=== PATIENT | male | born 1955 | race Caucasian/White ===

== ENCOUNTER 2016-11-01 23:02 | Emergency (ER) | payer OTHER ==
[2016-11-01 23:33] VITALS: BP 157/77; PULSE 69; TEMP 98.3; BMI 25.1
--- NOTE | 2016-11-02 01:07 | PDOC ---
History of Present Illness - History of Present Illness Initial Comments: 11/02/16 01:44 The patient is a 61 year old male, poor historian, with a significant past medical history of diabetes and hypertension, who presents to the emergency department from [facility] via ems with ecchymosis on left buttock for 2 weeks. The patient states he does not know how he obtained the bruise. He reports the bruise is painful. He denies chest pain, shortness of breath, headache and dizziness. He denies fever, chills, nausea, vomit, diarrhea and constipation. He denies dysuria, frequency, urgency and hematuria. Allergies: lactase <Marissa Hardy - Last Filed: 11/02/16 01:43> <Ju Godinez - Last Filed: 11/02/16 02:33> - General Chief Complaint: Wound Stated Complaint: ABSESS Time Seen by Provider: 11/01/16 23:49 Past History <Marissa Hardy - Last Filed: 11/02/16 01:43> - Past Medical History Anemia: No Asthma: No Cancer: No Cardiac Disorders: No CVA: No COPD: No CHF: No Dementia: No Diabetes: Yes GI Disorders: No Disorders: No HTN: Yes Hypercholesterolemia: Yes Liver Disease: No Seizures: No Thyroid Disease: No - Psycho/Social/Smoking Cessation Hx Anxiety: No Suicidal Ideation: No Smoking Status: No Smoking History: Current every day smoker Have you smoked in the past 12 months: Yes Number of Cigarettes Smoked Daily: 10 Information on smoking cessation initiated: Yes Hx Alcohol Use: No Drug/Substance Use Hx: No Substance Use Type: None <Ju Godinez - Last Filed: 11/02/16 02:33> - Past Medical History Allergies/Adverse Reactions: Allergies Allergy/AdvReac Type Severity Reaction Status Date / Time Lactase [From Dairy Ease] Allergy Mild Verified 11/01/16 23:31 Home Medications: Ambulatory Orders Amlodipine Besylate [Norvasc -] 10 mg PO DAILY #0 tablet 09/27/11 Lisinopril [Prinivil] 40 mg PO DAILY #0 tablet 09/27/11 Metformin HCl [Glucophage] 1,000 mg PO BIDAC #0 tablet 09/27/11 Review of Systems - Review of Systems Able to Perform ROS?: Yes Comments:: 11/02/16 01:44 CONSTITUTIONAL: Absent: fever, chills, diaphoresis, generalized weakness, malaise, loss of appetite HEENT: Absent: rhinorrhea, nasal congestion, throat pain, throat swelling, difficulty swallowing, mouth swelling, ear pain, eye pain, visual Changes CARDIOVASCULAR: Absent: chest pain, syncope, palpitations, irregular heart rate, lightheadedness , peripheral edema RESPIRATORY: Absent: cough, shortness of breath, dyspnea with exertion, orthopnea, wheezing, stridor, hemoptysis GASTROINTESTINAL: Absent: abdominal pain, abdominal distension, nausea, vomiting, diarrhea, constipation, melena, hematochezia GENITOURINARY: Absent: dysuria, frequency, urgency, hesitancy, hematuria, flank pain, genital pain MUSCULOSKELETAL: Absent: myalgia, arthralgia, joint swelling SKIN: (+)ecchymosis on left buttock Absent: rash, itching, pallor HEMATOLOGIC/IMMUNOLOGIC: Absent: easy bleeding, lymphadenopathy, frequent infections ENDOCRINE: Absent: unexplained weight gain, unexplained weight loss, heat intolerance, cold intolerance NEUROLOGIC: Absent: headache, focal weakness or paresthesias, dizziness, unsteady gait, seizure, mental status changes, bladder or bowel incontinence PSYCHIATRIC: Absent: anxiety, depression, suicidal or homicidal ideation, hallucinations. <Marissa Hardy - Last Filed: 11/02/16 01:43> *Physical Exam - Vital Signs Last Vital Signs Temp Pulse Resp BP Pulse Ox 98.3 F 69 18 157/77 99 11/01/16 23:31 11/01/16 23:31 11/01/16 23:31 11/01/16 23:31 11/01/16 23:31 - Physical Exam Comments: 11/02/16 01:45 GENERAL: Well developed, well nourished. Awake and alert. No acute distress. HEENT: Normocephalic, atraumatic. PERRLA, EOMI. No conjunctival pallor. Sclera are non- icteric. Moist mucous membranes. Oropharynx is clear. NECK: Supple. Full ROM. No JVD. Carotid pulses 2+ and symmetric, without bruits. No thyromegaly. No lymphadenopathy. CARDIOVASCULAR: Regular rate and rhythm. No murmurs, rubs, or gallops. Distal pulses are 2+ and symmetric. PULMONARY: No evidence of respiratory distress. Lungs clear to auscultation bilaterally. No wheezing, rales or rhonchi. ABDOMINAL: Soft. Non-tender. Non-distended. No rebound or guarding. No organomegaly. Normoactive bowel sounds. MUSCULOSKELETAL Normal range of motion at all joints. No bony deformities or tenderness. No CVA tenderness. EXTREMITIES: No cyanosis. No clubbing. No edema. No calf tenderness. SKIN: (+) large hematoma over left buttock. Warm and dry. Normal capillary refill. No rashes. No jaundice. NEUROLOGICAL: Alert, awake, appropriate. Cranial nerves 2-12 intact. Normoreflexic in the upper and lower extremities. Toes are down-going bilaterally. Gait is normal without ataxia. PSYCHIATRIC: Cooperative. Good eye contact. Appropriate mood and affect. <Marissa Hardy - Last Filed: 11/02/16 01:43> - Vital Signs Last Vital Signs Temp Pulse Resp BP Pulse Ox 98.3 F 69 18 157/77 99 11/01/16 23:31 11/01/16 23:31 11/01/16 23:31 11/01/16 23:31 11/01/16 23:31 <Ju Godinez - Last Filed: 11/02/16 02:33> ED Treatment Course - LABORATORY CBC & Chemistry Diagram: 11/02/16 01:17 11/02/16 01:17 - ADDITIONAL ORDERS Additional order review: 11/02/16 01:17 RBC 4.43 MCV 85.1 MCHC 33.6 RDW 14.2 MPV 7.3 L Neutrophils % 70.5 Lymphocytes % 14.9 Monocytes % 9.7 Eosinophils % 3.9 D Basophils % 1.0 <Marissa Hardy - Last Filed: 11/02/16 01:43> - LABORATORY CBC & Chemistry Diagram: 11/02/16 01:17 11/02/16 01:17 <Ju Godinez - Last Filed: 11/02/16 02:33> Medical Decision Making - Medical Decision Making 11/02/16 01:55 61 yo male p/w ecchymosis to the entire left buttocks. He states hse has had thsi for 2 weeks and th enote that accompanies him from [facility] He denies any trauma. social- lives at [place] PMH HTN,DM -pt is ambulatory ,alert but does not appear to have great insight into his problem and is a poor historian -lungs cta b/l -his abd is soft nontender back- no ecchymosis ,there is a linear line of discoloration but is it not a bruise, no abrasions,no lacerations are seen onhis back extremities-no erythema,no deformity or bruising neuro -alert,ambulatory,moving all extremities purposefully LAB REVIEW cbc is normal , no anemia [id number] 11/02/16 02:28 IMP left buttocks ecchymosis <Ju Godinez - Last Filed: 11/02/16 02:33> *DC/Admit/Observation/Transfer - Attestations Scribe Attestion: 11/02/16 01:46 Documentation prepared by Marissa Hardy, acting as claim review medical director for Ju Godinez MD <Marissa Hardy - Last Filed: 11/02/16 01:43> <Ju Godinez - Last Filed: 11/02/16 02:33> Diagnosis at time of Disposition: Bruising, Pain in buttock - Discharge Dispostion Disposition: HOME Condition at time of disposition: Stable - Patient Instructions Printed Discharge Instructions: DI for Hematoma (Bruise) Additional Instructions: Please take tylenol or motrin for buttocks pain
[2016-11-02 01:28] LABS: EOSINOPHIL 3.9 % (0-4.5); MCH 28.5 pg (25.7-33.7); MCHC 33.6 g/dl (32.0-35.9); MEAN CELL VOLUME 85.1 fl (80-96); MEAN PLT VOLUME 7.3 fl (7.5-11.1); NEUTROPHILS 70.5 % (42.8-82.8); PLATELET COUNT 308 K/MM3 (134-434); RDW 14.2 % (11.9-15.9); WHITE BLOOD COUNT 8.7 K/mm3 (4.0-10.0)
[2016-11-02 02:00] LABS: ALBUMIN 3.6 g/dl (3.4-5.0); ALK PHOS 105 U/L (45-117); ANION GAP 10 (8-16); BILIRUBIN,TOTAL 0.8 mg/dL (0.2-1.0); CALCIUM 8.3 mg/dL (8.5-10.1); CO2 29 mmol/L (21-32); GLUCOSE,RANDOM 175 mg/dL (74-106); SGOT/AST 15 U/L (15-37); SGPT/ALT 11 U/L (12-78); TOT PROT 6.6 g/dl (6.4-8.2)
== END 2016-11-02 03:01 | disposition home or self-care (01) ==
LOC: JER 23:02
DX: R58 Hemorrhage, not elsewhere classified (principal); I10 Essential (primary) hypertension; E11.9 Type 2 diabetes mellitus without complications; Z79.84 Long term (current) use of oral hypoglycemic drugs
CPT/HCPCS: 36415; 80053; 85025; 99282-25

== ENCOUNTER 2019-07-02 00:42 | Emergency (ER) | payer OTHER ==
[2019-07-02 01:16] VITALS: BP 146/82; PULSE 89; TEMP 98.8; BMI 25.1
[2019-07-02] MEDS ORDERED: SODIUM CHLORIDE FOR INHALATION 3 ML VIAL.NEB IH ONE (01:21)
[2019-07-02] MEDS ORDERED: IBUPROFEN 600 MG TABLET (FP) PO ONE ×2 (01:21→01:48)
--- NOTE | 2019-07-02 01:26 | PDOC ---
History of Present Illness - General Chief Complaint: Sore Throat Stated Complaint: THROAT PAIN Time Seen by Provider: 07/02/19 01:12 History Source: Patient Exam Limitations: No Limitations - History of Present Illness Initial Comments: 07/02/19 01:21 HISTORY OF PRESENT ILLNESS: This 64-year-old male past medical history of NIDDM , hypertension, glaucoma, hyperlipidemia and mood disorder who was sent to the emergency department for evaluation of throat pain. Patient reports to be checking his temperature at [facility] where he resides but has been afebrile. He reports having tactile fevers. Patient reports he has difficulty swallowing food due to pain in his throat but is able to drink liquids without difficulty. He denies any chest pain, shortness of breath, headaches, blurry vision. Patient with intermittent coughing which is been nonproductive. No recent travel or sick contacts. PAST MEDICAL HISTORY: See HPI SURGICAL HISTORY: Denies ALLERGIES: No known drug allergies REVIEW OF SYSTEMS General/Constitutional: Denies fever or chills. Denies weakness, weight change. HEENT: See HPI Cardiovascular: Denies chest pain or shortness of breath. Respiratory: See HPI Gastrointestinal: Denies nausea, vomiting, diarrhea or constipation. Denies rectal bleeding. Genitourinary: Denies dysuria, frequency, or change in urination. Musculoskeletal: Denies joint or muscle swelling or pain. Denies neck or back pain. Skin and breasts: Denies rash or easy bruising. Neurologic: Denies headache, vertigo, loss of consciousness, or loss of sensation. Psychiatric: Denies depression or anxiety. Endocrine: Denies increased thirst. Denies abnormal weight change. Hematologic/Lymphatic: Denies anemia, easy bleeding, or history of blood clots. Allergic/Immunologic: Denies hives or skin allergy. Denies latex allergy. PHYSICAL EXAM General Appearance: Well-appearing, appropriately dressed. No apparent distress , no intoxication. HEENT: EOMI, PERRLA, normal ENT inspection, normal voice, TMs jeyson oropharynx mildly erythematous without tonsillar swelling, l. No conjunctival pallor. No photophobia, scleral icterus. Erythema or exudate present. Cobblestoning present in the posterior aspect of the oropharynx. Mucus present in the posterior aspect of the oropharynx. Neck: Supple. Trachea midline. No tenderness, rigidity, carotid bruit, stridor , lymphadenopathy, or thyromegaly. Respiratory/Chest: Lungs CTAB. No shortness of breath, chest tenderness, respiratory distress, accessory muscle use. No crackles, rales, rhonchi, stridor , wheezing, dullness Cardiovascular: RRR. S1, S2. No JVD, murmur, bradycardia, tachycardia. Vascular Pulses: Dorsalis-Pedis (R): 2+, Dorsalis-Pedis (L): 2+ Gastrointestinal/Abdominal: Normal bowel sounds. Abdomen soft, non-distended. No tenderness or rebound tenderness. No organomegaly, pulsatile mass, guarding, hernia, hepatomegaly, splenomegaly. Lymphatic: No adenopathy, tenderness. Past History - Past Medical History Allergies/Adverse Reactions: Allergies Allergy/AdvReac Type Severity Reaction Status Date / Time Lactase [From Dairy Ease] Allergy Mild Verified 07/02/19 01:16 Home Medications: Ambulatory Orders Amlodipine Besylate [Norvasc -] 10 mg PO DAILY #0 tablet 09/27/11 Lisinopril [Prinivil] 40 mg PO DAILY #0 tablet 09/27/11 Metformin HCl [Glucophage] 1,000 mg PO BIDAC #0 tablet 09/27/11 Anemia: No Asthma: No Cancer: No Cardiac Disorders: No CVA: No COPD: No CHF: No Dementia: No Diabetes: Yes GI Disorders: No Disorders: No HTN: Yes Hypercholesterolemia: Yes Liver Disease: No Seizures: No Thyroid Disease: No - Psycho Social/Smoking Cessation Hx Smoking Status: No Smoking History: Current every day smoker Have you smoked in the past 12 months: Yes Number of Cigarettes Smoked Daily: 10 Information on smoking cessation initiated: No Hx Alcohol Use: No Drug/Substance Use Hx: No Substance Use Type: None *Physical Exam - Vital Signs Last Vital Signs Temp Pulse Resp BP Pulse Ox 98.8 F 89 18 146/82 98 07/02/19 00:45 07/02/19 00:45 07/02/19 00:45 07/02/19 00:45 07/02/19 00:45 Medical Decision Making - Medical Decision Making 07/02/19 01:25 A/P: 64-year-old male with sore throat and moist cough for 2 days This patient is afebrile and currently has clear lungs this is likely not a streptococcal infection nor pneumonia. Physical exam is consistent with a upper respiratory viral infection. Motrin 600 mg orally now Saline nebulizer treatments Reassess 07/02/19 01:42 Although patient reports difficulty swallowing patient is tolerating a turkey sandwich without difficulty. We will discharge patient back to [facility] to continue supportive care at the residence. I spoke with Ms. Aura Carmichael [facility] who is a patient care general road supervisor who is aware that the patient is returning to the facility and asked that the instructions be included in his discharge paperwork. Discharge - Discharge Information Problems reviewed: Yes Clinical Impression/Diagnosis: URI (upper respiratory infection) Qualifiers: URI type: unspecified viral URI Qualified Code(s): J06.9 - Acute upper respiratory infection, unspecified Condition: Fair Disposition: HOME - Admission No - Follow up/Referral - Patient Discharge Instructions Additional Instructions: Rest, drink lots of fluids: Teas, water, soups, Pedialyte Saltwater gargles Steamy showers/seem to face break up mucus Avoid contact with others until fevers and cough resolved Lots of handwashing and good hygiene Continue [id number] medications for symptomatic relief Tylenol or Motrin for fever and pain Followup with private physician in one to 2 days as needed Return to emergency department for worsened symptoms, fevers, dehydration - Post Discharge Activity
== END 2019-07-02 02:56 | disposition home or self-care (01) ==
LOC: JER 00:42
PROC: 3E0F7GC Introduction of Other Therapeutic Substance into Respiratory Tract, Via Natural or Artificial Opening (ICD-10-PCS; principal; 2019-07-02)
DX: J06.9 Acute upper respiratory infection, unspecified (principal); I10 Essential (primary) hypertension; E11.9 Type 2 diabetes mellitus without complications; Z79.84 Long term (current) use of oral hypoglycemic drugs; E78.00 Pure hypercholesterolemia, unspecified; F39 Unspecified mood [affective] disorder; H40.9 Unspecified glaucoma; Z91.02 Food additives allergy status; F17.210 Nicotine dependence, cigarettes, uncomplicated
CPT/HCPCS: 94640; 99281-25

== ENCOUNTER 2020-05-22 10:10 | Emergency (ER) | payer OTHER ==
[2020-05-22 10:23] VITALS: BMI 25.8
--- NOTE | 2020-05-22 11:00 | PDOC ---
History of Present Illness - General Chief Complaint: Injury Stated Complaint: hand laceration/fall/high blood sugar Time Seen by Provider: 05/22/20 11:00 - History of Present Illness Initial Comments: 05/22/20 11:09 64 yo male with pmh of DM presents to ED for right hand laceration that started this morning. Pt explains he was walking out of the grocery store and tripped on a rock and fell on his right hand. Since then he is been having profuse bleeding from right hand. Pt denies loc, hitting head, and was able to get up right away after fall on his own. Pt denies chest pain, sob, fevers, chills, abdominal pain, change in urination or bowel movements. Pt has no other pain besides right hand and denies numbness anywhere. Pt has had tetanus shot three months ago. PMH: NIDDM Allergy: Lactose PSH: denies Social: Lives at [facility] PCP: Dr. Cleaning Past History - Medical History Allergies/Adverse Reactions: Allergies Allergy/AdvReac Type Severity Reaction Status Date / Time Lactase [From Dairy Ease] Allergy Mild Verified 07/02/19 01:16 Home Medications: Ambulatory Orders Amlodipine Besylate [Norvasc -] 10 mg PO DAILY #0 tablet 09/27/11 Lisinopril [Prinivil] 40 mg PO DAILY #0 tablet 09/27/11 Metformin HCl [Glucophage] 1,000 mg PO BIDAC #0 tablet 09/27/11 Sulfamethoxazole/Trimethoprim [Bactrim Ds -] 1 tab PO BID 7 Days #14 tablet 05/22/20 Anemia: No Asthma: No Cancer: No Cardiac Disorders: No CVA: No COPD: No CHF: No Dementia: No Diabetes: Yes GI Disorders: No Disorders: No HTN: Yes Hypercholesterolemia: Yes Liver Disease: No Psychiatric Problems: Yes (psychosis) Seizures: No Thyroid Disease: Yes - Psycho-Social/Smoking History Smoking Status: No Smoking History: Unknown if ever smoked Have you smoked in the past 12 months: No Number of Cigarettes Smoked Daily: 10 Information on smoking cessation initiated: No - Substance Abuse Hx (Audit-C & DAST Scrn) In the last yr the pt used illegal drug/Rx for NonMed reason: No Score: Yes response is considered Positive: 0 Screen Result (Positive result requires Nsg. DAST-10): Negative Review of Systems - Review of Systems Comments:: 05/22/20 11:12 GENERAL/CONSTITUTIONAL: No fever or chills. No weakness. HEAD, EYES, EARS, NOSE AND THROAT: No change in vision. No ear pain or discharge. No sore throat. CARDIOVASCULAR: No chest pain or shortness of breath RESPIRATORY: No cough, wheezing, or hemoptysis. GASTROINTESTINAL: No nausea, vomiting, diarrhea or constipation. GENITOURINARY: No dysuria, frequency, or change in urination. MUSCULOSKELETAL: Right thumb pain SKIN: No rash NEUROLOGIC: No headache, vertigo, loss of consciousness, or change in strength/sensation. ENDOCRINE: No increased thirst. No abnormal weight change ALLERGIC/IMMUNOLOGIC: No hives or skin allergy. *Physical Exam - Vital Signs Last Vital Signs Temp Pulse Resp BP Pulse Ox 97.6 F 80 16 130/75 100 05/22/20 10:17 05/22/20 10:17 05/22/20 10:17 05/22/20 10:17 05/22/20 10:17 - Physical Exam 05/22/20 11:14 GENERAL: Awake, alert, and fully oriented, in no acute distress HEAD: No signs of trauma, normocephalic, atraumatic EYES: EOMI, sclera anicteric, conjunctiva clear ENT: Auricles normal inspection, hearing grossly normal, nares patent, oropharynx clear without exudates. Moist mucosa NECK: Normal ROM, supple, no lymphadenopathy, JVD, or masses LUNGS: No distress, speaks full sentences, clear to auscultation bilaterally HEART: Regular rate and rhythm, normal S1 and S2, no murmurs, rubs or gallops, peripheral pulses normal and equal bilaterally. ABDOMEN: Soft, nontender, normoactive bowel sounds. No guarding, no rebound. No masses EXTREMITIES : Right dorsal aspect laceration with 4 cm and pulsatile bleeding NEUROLOGICAL: Cranial nerves II through XII grossly intact. Normal speech, normal gait, no focal sensorimotor deficits SKIN: Warm, Dry, normal turgor, no rashes or lesions noted ED Treatment Course - LABORATORY CBC & Chemistry Diagram: 05/22/20 10:30 05/22/20 10:30 Medical Decision Making - Medical Decision Making 05/22/20 11:18 64 yo male with history of dm presents for mechanical fall and right hand laceration. Pt believes he fell on [place]. Pt had pulsatile blood flow coming from laceration. Will get cxr to look for glass. Multiple times sutured to tamponade bleed with 3-0 absorbable sutures. Xray showed no glass or infiltrates hand. Hand was anesthesized with 1% lidocaine, washed profusely under sink, and sutured with 4 nonabsorbable 4-0 sutures. Pt was told about return precautions and to take antibiotics and to follow up with PCP within 7 days. Pt did understand. Pt then was told about elevated Creatinine and was also told to follow up with PCP. Discharge - Discharge Information Problems reviewed: Yes Clinical Impression/Diagnosis: Finger laceration Qualifiers: Encounter type: initial encounter Finger: thumb Damage to nail status: without damage Foreign body presence: without foreign body Laterality: right Qualified Code(s): S61.011A - Laceration without foreign body of right thumb without damage to nail, initial encounter Condition: Good Disposition: HOME - Additional Discharge Information Prescriptions: Sulfamethoxazole/Trimethoprim [Bactrim Ds -] 1 tab PO BID 7 Days #14 tablet - Follow up/Referral Referrals: Edy Cleaning [Primary Care Provider] - - Patient Discharge Instructions Patient Printed Discharge Instructions: DI for Laceration Repair -- Finger Additional Instructions: You came to the ED for a laceration. At the ED we gave you multiple absorbable sutures and 4 nonabsorbable sutures. After the sutures you still were neurovascularly intact. Please try not to move your thumb for the next 7 days. You will have mild bleeding from the laceration but it should not drench through gauze. Please follow up with your pcp for the finger laceration in 7 days to take out the stitches. Please also take the bactrim for two times a day for the next seven days. You also have elevated kidney levels please follow up with your PCP for that as well. Please come back if any of the following: - worsening pain - yellow or thick discharge from the laceration - fevers or chills - expanding erythema from area IF you have any emergent symptoms please call for medical help right away. Print Language: WOLOF - Post Discharge Activity
--- NOTE | 2020-05-22 11:33 | PDOC ---
Documentation entered by Krystal Crook SCRIBE, acting as scribe for Meet De Guzman MD. Meet De Guzman MD: This documentation has been prepared by the Armaan lópez Xhesika, SCRIBE, under my direction and personally reviewed by me in its entirety. I confirm that the documentation accurately reflects all work, treatment, procedures, and medical decision making performed by me. Attending Attestation - Resident Resident Name: Wilmer Adkins - ED Attending Attestation I have performed the following: I have examined & evaluated the patient, The case was reviewed & discussed with the resident, I agree w/resident's findings & plan, Exceptions are as noted - HPI HPI: 05/22/20 11:08 The patient is a 64 year old male, with a significant past medical history of diabetes and hypertension, who presents to the emergency department with R hand laceration. Pt states he was walking out the grocery store, tripped on rocks and fell on glass. Pt denies hitting his head or LOC. Pt denies any UE numbness. He denies chest pain, shortness of breath, headache and dizziness. He denies fever, chills, nausea, vomit, diarrhea and constipation. He denies dysuria, frequency, urgency and hematuria. Allergies: lactase - Physicial Exam PE: 05/22/20 11:30 exam: GENERAL: The patient is awake, alert, and fully oriented, Nontoxic - in no acute distress. HEAD: Normocephalic, atraumatic. EXTREMITIES: Normal range of motion, no edema. superficial 2cm laceration on the radial aspect of R wrist with bleeding (likely artriole), n/v intact including thumb flexion/extension, sensation NEUROLOGICAL: No facial assymetry, Normal speech, moving all 4 extremities spontaneously and symmetrically - Medical Decision Making 05/22/20 11:32 hyperglyceia - will obtain lab work to ro dka fluids for hydration laceration sp falll onto glass on the street. no head njury/loc likely with arteriolar bleeding, attempted to use stituch to tamponade mery obtain xray to r/o fb tetanus lac closure 05/22/20 13:39 lac closed by resident by good approximation under my supervision no fb on xray lab reviewed, noted for hyperglycemia w/o dka will dc with outpt fu return preucations were discussed Discharge - Discharge Information Problems reviewed: Yes Clinical Impression/Diagnosis: Finger laceration Qualifiers: Encounter type: initial encounter Finger: thumb Damage to nail status: without damage Foreign body presence: without foreign body Laterality: right Qualified Code(s): S61.011A - Laceration without foreign body of right thumb without damage to nail, initial encounter Condition: Good Disposition: HOME - Admission No - Additional Discharge Information Prescriptions: Sulfamethoxazole/Trimethoprim [Bactrim Ds -] 1 tab PO BID 7 Days #14 tablet - Follow up/Referral Referrals: Edy Cleaning [Primary Care Provider] - - Patient Discharge Instructions Patient Printed Discharge Instructions: DI for Laceration Repair -- Finger Additional Instructions: You came to the ED for a laceration. At the ED we gave you multiple absorbable sutures and 4 nonabsorbable sutures. After the sutures you still were neurovascularly intact. Please try not to move your thumb for the next 7 days. You will have mild bleeding from the laceration but it should not drench through gauze. Please follow up with your pcp for the finger laceration in 7 days to take out the stitches. Please also take the bactrim for two times a day for the next seven days. You also have elevated kidney levels please follow up with your PCP for that as well. Please come back if any of the following: - worsening pain - yellow or thick discharge from the laceration - fevers or chills - expanding erythema from area IF you have any emergent symptoms please call for medical help right away. Print Language: AMHARIC - Post Discharge Activity
[2020-05-22 12:17] LABS: BASO % 1.1 % (0-2.0); EOS % 7.6 % (0-4.5); HEMOGLOBIN 14.3 GM/dL (11.7-16.9); LYMPH % 15.8 % (8-40); MCH 29.5 pg (25.7-33.7); MEAN CELL VOLUME 86.9 fl (80-96); MEAN PLT VOLUME 8.2 fl (7.5-11.1); MONO % 6.9 % (3.8-10.2); NEUT % 68.6 % (42.8-82.8); PLATELET COUNT 309 K/MM3 (134-434); RBC 4.83 M/mm3 (4.00-5.60); RDW 13.6 % (11.9-15.9); WHITE BLOOD COUNT 7.7 K/mm3 (4.0-10.0)
[2020-05-22 12:44] LABS: ALBUMIN 3.8 g/dl (3.4-5.0); BILIRUBIN,TOTAL 0.2 mg/dL (0.2-1); BLOOD UREA NITROGEN 23.4 mg/dL (7-18); CALCIUM 8.8 mg/dL (8.5-10.1); CREATININE 1.4 mg/dL (0.55-1.3); POTASSIUM 4.9 mmol/L (3.5-5.1); TOT PROT 7.4 g/dl (6.4-8.2)
[2020-05-22 14:07] VITALS: BP 128/76; PULSE 70; TEMP 98.5
== END 2020-05-22 14:07 | disposition home or self-care (01) ==
LOC: JER 10:10
PROC: 0HQFXZZ Repair Right Hand Skin, External Approach (ICD-10-PCS; principal; 2020-05-22)
DX: S61.011A Laceration without foreign body of right thumb without damage to nail, initial encounter (principal)
CPT/HCPCS: 36415; 73130-TC-RT-FY; 80053; 82010; 82962; 85025; 99284-25

== ENCOUNTER 2020-09-24 11:51 | Emergency (ER) | payer OTHER ==
[2020-09-24 12:20] VITALS: TEMP 98.6; BMI 25.1
[2020-09-24 18:12] VITALS: BP 154/79; PULSE 90
== END 2020-09-24 20:45 | disposition home or self-care (01) ==
LOC: JER 11:51
DX: N63.0 Unspecified lump in unspecified breast (principal)
CPT/HCPCS: 71046-TC-FY; 76642-TC-RT; 99284-25

== ENCOUNTER 2021-01-19 20:30 | Inpatient (IN) | payer OTHER ==
[2021-01-19] MEDS ORDERED: SODIUM CHLORIDE 0.9% 500 ML INFUS.BAG IV ONE (21:19)
[2021-01-19 21:26] LABS: VENOUS O2 SATURATION 28.1 % (70-80); VENOUS PCO2 45.8 mmHg (38-52); VENOUS PH 7.336 (7.310-7.410)
[2021-01-19 21:28] LABS: BASO % 0.8 % (0-2.0); EOS % 0.7 % (0-4.5); HEMATOCRIT 32.4 % (35.4-49); HEMOGLOBIN 10.6 GM/dL (11.7-16.9); MCH 28.2 pg (25.7-33.7); MCHC 32.8 g/dl (32.0-35.9); MEAN CELL VOLUME 86.1 fl (80-96); MONO % 4.5 % (3.8-10.2); PLATELET COUNT 690 K/MM3 (134-434); RBC 3.76 M/mm3 (4.00-5.60); RDW 13.6 % (11.9-15.9); WHITE BLOOD COUNT 19.3 K/mm3 (4.0-10.0)
[2021-01-19 21:56] LABS: CHLORIDE 91 mmol/L (98-107); SODIUM 130 mmol/L (136-145)
[2021-01-19 21:58] LABS: CALCIUM 9.4 mg/dL (8.5-10.1)
[2021-01-19 21:59] LABS: ANION GAP 12 MMOL/L (8-16); BLOOD UREA NITROGEN 44.2 mg/dL (7-18); CO2 27 mmol/L (21-32); GLUCOSE,RANDOM 322 mg/dL (74-106); MAGNESIUM 1.6 mg/dL (1.8-2.4)
[2021-01-19 22:02] LABS: SGOT/AST 9 U/L (15-37); SGPT/ALT 11 U/L (13-61)
[2021-01-19 22:03] LABS: BILIRUBIN,TOTAL 0.5 mg/dL (0.2-1); TOT PROT 7.3 g/dl (6.4-8.2)
[2021-01-19 22:04] LABS: ALK PHOS 155 U/L (45-117)
[2021-01-19 22:42] LABS: EPI CELLS 21 /uL (0-25.1); HYALINE CASTS 0 /uL (0-3.1); PH,URINE 5.5 (5.0-8.0); URINE APPEARANCE TURBID; URINE BILIRUBIN NEGATIVE (NEGATIVE); URINE COLOR YELLOW; URINE GLUCOSE (UA) 3+ (NEGATIVE); URINE KETONE TRACE (NEGATIVE); URINE LEUK ESTERASE 3+ (NEGATIVE); URINE NITRITE NEGATIVE (NEGATIVE); URINE PROTEIN 1+ (NEGATIVE); URINE RBC 76 /uL (0-23.9); URINE WBC 3446 /uL (0-25.8)
[2021-01-20] MEDS ORDERED: CEFTRIAXONE 1,000 MG in DEXTROSE 5%-WATER - 50 ML IVPB ONE (00:44)
[2021-01-20] MEDS ORDERED: CEFTRIAXONE 1 GM/50 ML BAG ONE (01:08)
[2021-01-20] MEDS ORDERED: MAGNESIUM SULF 50% (8.12 MEQ/2 ML-1 GM VIAL) IVPB ONE ×2 (01:45→08:19)
[2021-01-20] MEDS ORDERED: OLANZapine 10 MG TABLET ONE (02:19)
[2021-01-20] MEDS ORDERED: MIRTAZAPINE 15 MG TABLET (FP) ONE (02:19)
[2021-01-20] MEDS ORDERED: MAGNESIUM 1GM/D5W - 1 GM/100 ML IVPB IVPB ONE (02:19)
[2021-01-20] MEDS: SODIUM CHLORIDE 1,000 ML IV SCH (02:40)
[2021-01-20] MEDS: MIRTAZAPINE 15 MG TABLET (FP) PO SCH ×2 (02:40→21:47)
[2021-01-20] MEDS: OLANZapine 5 MG TABLET PO SCH ×2 (02:40→21:47)
[2021-01-20 03:59] VITALS: BMI 21.7
[2021-01-20] MEDS ORDERED: DEXTROSE 5%-WATER - 50 ML IVPB ONE ×4 (04:05→20:45)
[2021-01-20] MEDS ORDERED: PIPERACILLIN/TAZOBACTAM 2.25 GM VIAL IVPB ONE ×4 (04:05→20:45)
[2021-01-20] MEDS: PIPERACILLIN/TAZOB 2.25 GM 2.25 GM in DEXTROSE 5%-WATER - 50 ML IVPB SCH ×4 (04:12→21:51)
[2021-01-20] MEDS ORDERED: INSULIN (NOVOLOG) ASPART 100 UNITS/ML 10ML VIAL SQ ONE (04:44)
[2021-01-20 05:16] LABS: PHOSPHOROUS 4.7 mg/dL (2.5-4.9)
[2021-01-20] MEDS: INSULIN SLIDING SCALE (NOVOLOG) 1 VIAL SQ SCH ×4 (06:21→22:03)
[2021-01-20] MEDS: LEVOTHYROXINE NA 25 MCG TABLET (FP) PO SCH (06:24)
[2021-01-20] MEDS: HEPARIN NA (PORCINE) 5,000 UNITS/ML 1ML VIAL SQ SCH ×3 (06:25→21:50)
[2021-01-20 08:41] LABS: HEMATOCRIT 29.3 % (35.4-49); HEMOGLOBIN 9.8 GM/dL (11.7-16.9); MCH 28.6 pg (25.7-33.7); MCHC 33.3 g/dl (32.0-35.9); MEAN CELL VOLUME 85.9 fl (80-96); MEAN PLT VOLUME 8.2 fl (7.5-11.1); PLATELET COUNT 553 K/MM3 (134-434); RBC 3.42 M/mm3 (4.00-5.60); RDW 13.3 % (11.9-15.9); WHITE BLOOD COUNT 17.5 K/mm3 (4.0-10.0)
[2021-01-20 09:13] LABS: ALBUMIN 2.6 g/dl (3.4-5.0); BLOOD UREA NITROGEN 39.3 mg/dL (7-18); CALCIUM 8.8 mg/dL (8.5-10.1)
[2021-01-20 09:14] LABS: MAGNESIUM 1.7 mg/dL (1.8-2.4)
[2021-01-20 09:16] LABS: BILIRUBIN,TOTAL 0.4 mg/dL (0.2-1); CREATININE 1.9 mg/dL (0.55-1.3); PHOSPHOROUS 2.6 mg/dL (2.5-4.9); TOT PROT 6.8 g/dl (6.4-8.2)
[2021-01-20] MEDS: TIMOLOL 0.25% OPHTHALMIC SOL 5 ML BOTTLE OU SCH (09:51)
[2021-01-20] MEDS: amLODIPine BESYLATE 10 MG TABLET (FP) PO SCH (09:51)
[2021-01-20] MEDS ORDERED: TIMOLOL MALEATE AU SCH (10:00)
[2021-01-21] MEDS ORDERED: PIPERACILLIN/TAZOB 2.25 GM 2.25 GM in DEXTROSE 5%-WATER - 50 ML IVPB SCH (03:00)
[2021-01-21] MEDS: SODIUM CHLORIDE 1,000 ML IV SCH (04:41)
[2021-01-21] MEDS: HEPARIN NA (PORCINE) 5,000 UNITS/ML 1ML VIAL SQ SCH ×3 (06:15→21:42)
[2021-01-21] MEDS: LEVOTHYROXINE NA 25 MCG TABLET (FP) PO SCH (06:15)
[2021-01-21] MEDS: INSULIN SLIDING SCALE (NOVOLOG) 1 VIAL SQ SCH ×4 (06:15→21:49)
[2021-01-21 08:23] LABS: HEMATOCRIT 29.1 % (35.4-49); HEMOGLOBIN 9.8 GM/dL (11.7-16.9); MCH 28.8 pg (25.7-33.7); MCHC 33.6 g/dl (32.0-35.9); MEAN CELL VOLUME 85.9 fl (80-96); PLATELET COUNT 540 K/MM3 (134-434); RBC 3.38 M/mm3 (4.00-5.60); RDW 13.5 % (11.9-15.9); WHITE BLOOD COUNT 13.8 K/mm3 (4.0-10.0)
[2021-01-21 08:57] LABS: ALBUMIN 2.4 g/dl (3.4-5.0)
[2021-01-21 08:58] LABS: CALCIUM 8.7 mg/dL (8.5-10.1)
[2021-01-21 08:59] LABS: MAGNESIUM 1.6 mg/dL (1.8-2.4)
[2021-01-21 09:00] LABS: CREATININE 1.3 mg/dL (0.55-1.3); PHOSPHOROUS 2.8 mg/dL (2.5-4.9)
[2021-01-21 09:01] LABS: BILIRUBIN,TOTAL 0.7 mg/dL (0.2-1); TOT PROT 6.4 g/dl (6.4-8.2)
[2021-01-21] MEDS ORDERED: PIPERACILLIN/TAZOBACTAM 3.375 GM VIAL IVPB ONE ×2 (10:14→17:31)
[2021-01-21] MEDS ORDERED: DEXTROSE 5%-WATER - 50 ML IVPB ONE ×2 (10:14→17:31)
[2021-01-21] MEDS: amLODIPine BESYLATE 10 MG TABLET (FP) PO SCH (10:39)
[2021-01-21] MEDS: PIPERACILLIN/TAZOB 3.375 GM 3.375 GM in DEXTROSE 5%-WATER - 50 ML IVPB SCH ×2 (10:39→17:45)
[2021-01-21] MEDS ORDERED: MAGNESIUM OXIDE 400 MG TABLET (FP) PO ONE (12:23)
[2021-01-21] MEDS ORDERED: MAGNESIUM SULF 50% (8.12 MEQ/2 ML-1 GM VIAL) IVPB ONE (14:36)
[2021-01-21] MEDS: TIMOLOL 0.25% OPHTHALMIC SOL 5 ML BOTTLE OU SCH (16:22)
[2021-01-21] MEDS: MIRTAZAPINE 15 MG TABLET (FP) PO SCH (21:41)
[2021-01-21] MEDS: OLANZapine 5 MG TABLET PO SCH (21:42)
[2021-01-22] MEDS ORDERED: PIPERACILLIN/TAZOBACTAM 3.375 GM VIAL IVPB ONE ×3 (01:35→16:22)
[2021-01-22] MEDS ORDERED: DEXTROSE 5%-WATER - 50 ML IVPB ONE ×3 (01:35→16:22)
[2021-01-22] MEDS: PIPERACILLIN/TAZOB 3.375 GM 3.375 GM in DEXTROSE 5%-WATER - 50 ML IVPB SCH ×3 (01:41→17:23)
[2021-01-22] MEDS: INSULIN SLIDING SCALE (NOVOLOG) 1 VIAL SQ SCH ×4 (06:23→21:28)
[2021-01-22] MEDS: HEPARIN NA (PORCINE) 5,000 UNITS/ML 1ML VIAL SQ SCH ×3 (06:27→21:26)
[2021-01-22] MEDS: LEVOTHYROXINE NA 25 MCG TABLET (FP) PO SCH (06:30)
[2021-01-22 08:03] LABS: HEMATOCRIT 29.3 % (35.4-49); HEMOGLOBIN 9.9 GM/dL (11.7-16.9); MCH 29.1 pg (25.7-33.7); MCHC 33.8 g/dl (32.0-35.9); MEAN CELL VOLUME 85.9 fl (80-96); MEAN PLT VOLUME 7.9 fl (7.5-11.1); PLATELET COUNT 538 K/MM3 (134-434); RBC 3.41 M/mm3 (4.00-5.60); RDW 13.6 % (11.9-15.9); WHITE BLOOD COUNT 10.9 K/mm3 (4.0-10.0)
[2021-01-22 08:31] LABS: ALBUMIN 2.6 g/dl (3.4-5.0); BLOOD UREA NITROGEN 23.5 mg/dL (7-18); CALCIUM 9.2 mg/dL (8.5-10.1); MAGNESIUM 1.8 mg/dL (1.8-2.4)
[2021-01-22 08:35] LABS: CREATININE 1.3 mg/dL (0.55-1.3); PHOSPHOROUS 3.6 mg/dL (2.5-4.9)
[2021-01-22 08:36] LABS: BILIRUBIN,TOTAL 0.6 mg/dL (0.2-1); TOT PROT 6.5 g/dl (6.4-8.2)
[2021-01-22] MEDS ORDERED: SODIUM CHLORIDE 1,000 ML IV SCH (08:45)
[2021-01-22] MEDS: amLODIPine BESYLATE 10 MG TABLET (FP) PO SCH (09:38)
[2021-01-22] MEDS: TIMOLOL 0.25% OPHTHALMIC SOL 5 ML BOTTLE OU SCH (09:39)
[2021-01-22] MEDS: SODIUM CHLORIDE 1 GM TABLET PO SCH (17:22)
[2021-01-22] MEDS: MIRTAZAPINE 15 MG TABLET (FP) PO SCH (21:25)
[2021-01-22] MEDS: OLANZapine 5 MG TABLET PO SCH (21:25)
[2021-01-23] MEDS ORDERED: PIPERACILLIN/TAZOBACTAM 3.375 GM VIAL IVPB ONE ×3 (01:53→16:59)
[2021-01-23] MEDS ORDERED: DEXTROSE 5%-WATER - 50 ML IVPB ONE ×3 (01:53→16:59)
[2021-01-23] MEDS: PIPERACILLIN/TAZOB 3.375 GM 3.375 GM in DEXTROSE 5%-WATER - 50 ML IVPB SCH ×3 (01:54→17:11)
[2021-01-23] MEDS: INSULIN SLIDING SCALE (NOVOLOG) 1 VIAL SQ SCH ×5 (06:01→22:14)
[2021-01-23] MEDS: HEPARIN NA (PORCINE) 5,000 UNITS/ML 1ML VIAL SQ SCH ×3 (06:02→22:16)
[2021-01-23] MEDS: LEVOTHYROXINE NA 25 MCG TABLET (FP) PO SCH (06:09)
[2021-01-23 08:34] LABS: BASO % 1.1 % (0-2.0); HEMATOCRIT 31.3 % (35.4-49); HEMOGLOBIN 10.3 GM/dL (11.7-16.9); LYMPH % 10.4 % (8-40); MCH 28.5 pg (25.7-33.7); MCHC 32.8 g/dl (32.0-35.9); MEAN PLT VOLUME 7.7 fl (7.5-11.1); MONO % 6.8 % (3.8-10.2); NEUT % 79.7 % (42.8-82.8); PLATELET COUNT 588 K/MM3 (134-434); RDW 13.6 % (11.9-15.9); WHITE BLOOD COUNT 11.9 K/mm3 (4.0-10.0)
[2021-01-23 08:59] LABS: CHOLESTEROL 117 mg/dL (50-200)
[2021-01-23 09:00] LABS: LDL CHOLESTEROL (ONLY SJRH) 73 mg/dL (5-100); TRIGLYCERIDES 128 mg/dL (0-150)
[2021-01-23 09:02] LABS: HDL CHOLESTEROL 26 mg/dL (40-60)
[2021-01-23 10:45] LABS: ANISOCYTOSIS 0; MACROCYTOSIS 0; PLATELET ESTIMATE INCREASED
[2021-01-23] MEDS: ASPIRIN COATED 81 MG TABLET.EC PO SCH (11:55)
[2021-01-23] MEDS: amLODIPine BESYLATE 10 MG TABLET (FP) PO SCH (11:56)
[2021-01-23] MEDS: TIMOLOL 0.25% OPHTHALMIC SOL 5 ML BOTTLE OU SCH (11:56)
[2021-01-23] MEDS: SODIUM CHLORIDE 1 GM TABLET PO SCH (11:56)
[2021-01-23] MEDS: OLANZapine 5 MG TABLET PO SCH (22:13)
[2021-01-23] MEDS: MIRTAZAPINE 15 MG TABLET (FP) PO SCH (22:13)
[2021-01-24] MEDS ORDERED: PIPERACILLIN/TAZOBACTAM 3.375 GM VIAL IVPB ONE ×3 (01:45→16:43)
[2021-01-24] MEDS ORDERED: DEXTROSE 5%-WATER - 50 ML IVPB ONE ×3 (01:45→16:43)
[2021-01-24] MEDS: PIPERACILLIN/TAZOB 3.375 GM 3.375 GM in DEXTROSE 5%-WATER - 50 ML IVPB SCH ×3 (01:51→17:06)
[2021-01-24] MEDS: LEVOTHYROXINE NA 25 MCG TABLET (FP) PO SCH (06:01)
[2021-01-24] MEDS: HEPARIN NA (PORCINE) 5,000 UNITS/ML 1ML VIAL SQ SCH ×3 (06:01→21:49)
[2021-01-24] MEDS: INSULIN SLIDING SCALE (NOVOLOG) 1 VIAL SQ SCH ×4 (06:01→21:51)
[2021-01-24 10:16] LABS: CALCIUM 9.4 mg/dL (8.5-10.1)
[2021-01-24 10:17] LABS: ALBUMIN 2.8 g/dl (3.4-5.0); BLOOD UREA NITROGEN 31.8 mg/dL (7-18)
[2021-01-24 10:20] LABS: CREATININE 1.6 mg/dL (0.55-1.3); PHOSPHOROUS 4.9 mg/dL (2.5-4.9)
[2021-01-24 10:21] LABS: BILIRUBIN,TOTAL 0.4 mg/dL (0.2-1); TOT PROT 6.9 g/dl (6.4-8.2)
[2021-01-24] MEDS: amLODIPine BESYLATE 10 MG TABLET (FP) PO SCH (10:28)
[2021-01-24] MEDS: ASPIRIN COATED 81 MG TABLET.EC PO SCH (10:29)
[2021-01-24] MEDS: SODIUM CHLORIDE 1 GM TABLET PO SCH (10:29)
[2021-01-24] MEDS: TIMOLOL 0.25% OPHTHALMIC SOL 5 ML BOTTLE OU SCH (10:29)
[2021-01-24 10:32] LABS: HEMATOCRIT 30.8 % (35.4-49); HEMOGLOBIN 9.9 GM/dL (11.7-16.9); MCH 27.8 pg (25.7-33.7); MCHC 32.2 g/dl (32.0-35.9); MEAN CELL VOLUME 86.4 fl (80-96); MEAN PLT VOLUME 7.8 fl (7.5-11.1); PLATELET COUNT 673 K/MM3 (134-434); RBC 3.57 M/mm3 (4.00-5.60); WHITE BLOOD COUNT 12.6 K/mm3 (4.0-10.0)
[2021-01-24] MEDS ORDERED: SODIUM CHLORIDE 1,000 ML IV SCH (17:15)
[2021-01-24] MEDS: OLANZapine 5 MG TABLET PO SCH (21:50)
[2021-01-24] MEDS: MIRTAZAPINE 15 MG TABLET (FP) PO SCH (21:50)
[2021-01-25] MEDS ORDERED: PIPERACILLIN/TAZOBACTAM 3.375 GM VIAL IVPB ONE ×3 (01:14→17:23)
[2021-01-25] MEDS ORDERED: DEXTROSE 5%-WATER - 50 ML IVPB ONE ×3 (01:15→17:24)
[2021-01-25] MEDS: PIPERACILLIN/TAZOB 3.375 GM 3.375 GM in DEXTROSE 5%-WATER - 50 ML IVPB SCH ×3 (01:33→17:29)
[2021-01-25] MEDS: INSULIN SLIDING SCALE (NOVOLOG) 1 VIAL SQ SCH ×4 (06:09→21:51)
[2021-01-25] MEDS: HEPARIN NA (PORCINE) 5,000 UNITS/ML 1ML VIAL SQ SCH ×3 (06:09→21:50)
[2021-01-25] MEDS: LEVOTHYROXINE NA 25 MCG TABLET (FP) PO SCH (06:10)
[2021-01-25 09:08] LABS: HEMATOCRIT 29.8 % (35.4-49); HEMOGLOBIN 9.7 GM/dL (11.7-16.9); MCH 28.2 pg (25.7-33.7); MCHC 32.7 g/dl (32.0-35.9); MEAN CELL VOLUME 86.1 fl (80-96); MEAN PLT VOLUME 7.4 fl (7.5-11.1); PLATELET COUNT 697 K/MM3 (134-434); RBC 3.46 M/mm3 (4.00-5.60); RDW 14.2 % (11.9-15.9); WHITE BLOOD COUNT 13.7 K/mm3 (4.0-10.0)
[2021-01-25 09:27] LABS: BLOOD UREA NITROGEN 31.8 mg/dL (7-18); CALCIUM 9.4 mg/dL (8.5-10.1); MAGNESIUM 2.1 mg/dL (1.8-2.4)
[2021-01-25 09:30] LABS: CREATININE 1.6 mg/dL (0.55-1.3)
[2021-01-25 09:31] LABS: PHOSPHOROUS 4.1 mg/dL (2.5-4.9)
[2021-01-25] MEDS: amLODIPine BESYLATE 10 MG TABLET (FP) PO SCH (09:58)
[2021-01-25] MEDS: SODIUM CHLORIDE 1 GM TABLET PO SCH (10:00)
[2021-01-25] MEDS: TIMOLOL 0.25% OPHTHALMIC SOL 5 ML BOTTLE OU SCH (10:01)
[2021-01-25] MEDS: ASPIRIN COATED 81 MG TABLET.EC PO SCH (10:01)
[2021-01-25] MEDS: OLANZapine 5 MG TABLET PO SCH (21:50)
[2021-01-25] MEDS: MIRTAZAPINE 15 MG TABLET (FP) PO SCH (21:50)
[2021-01-26] MEDS ORDERED: PIPERACILLIN/TAZOBACTAM 3.375 GM VIAL IVPB ONE ×2 (02:32→09:56)
[2021-01-26] MEDS ORDERED: DEXTROSE 5%-WATER - 50 ML IVPB ONE ×2 (02:32→09:56)
[2021-01-26] MEDS: PIPERACILLIN/TAZOB 3.375 GM 3.375 GM in DEXTROSE 5%-WATER - 50 ML IVPB SCH ×2 (02:40→10:25)
[2021-01-26] MEDS: LEVOTHYROXINE NA 25 MCG TABLET (FP) PO SCH (06:00)
[2021-01-26] MEDS: HEPARIN NA (PORCINE) 5,000 UNITS/ML 1ML VIAL SQ SCH ×2 (06:00→15:12)
[2021-01-26] MEDS: INSULIN SLIDING SCALE (NOVOLOG) 1 VIAL SQ SCH ×3 (06:07→17:40)
[2021-01-26 08:56] LABS: HEMATOCRIT 30.4 % (35.4-49); MCH 28.6 pg (25.7-33.7); MCHC 32.9 g/dl (32.0-35.9); MEAN PLT VOLUME 7.6 fl (7.5-11.1); PLATELET COUNT 688 K/MM3 (134-434); RDW 14.3 % (11.9-15.9); WHITE BLOOD COUNT 12.4 K/mm3 (4.0-10.0)
[2021-01-26 09:08] LABS: CALCIUM 9.3 mg/dL (8.5-10.1)
[2021-01-26 09:09] LABS: BLOOD UREA NITROGEN 31.4 mg/dL (7-18)
[2021-01-26 09:12] LABS: CREATININE 1.5 mg/dL (0.55-1.3)
[2021-01-26] MEDS: ASPIRIN COATED 81 MG TABLET.EC PO SCH (10:25)
[2021-01-26] MEDS: amLODIPine BESYLATE 10 MG TABLET (FP) PO SCH (10:25)
[2021-01-26] MEDS: TIMOLOL 0.25% OPHTHALMIC SOL 5 ML BOTTLE OU SCH (10:25)
[2021-01-26] MEDS: SODIUM CHLORIDE 1 GM TABLET PO SCH (10:25)
[2021-01-26 15:28] VITALS: BP 112/53; PULSE 68; TEMP 98.4
[2021-01-27] MEDS ORDERED: SODIUM CHLORIDE 1 GM TABLET PO SCH (10:00)
== END 2021-01-26 18:00 | disposition home or self-care (01) | DRG 682 ==
LOC: JER 20:30 → JERBED 23:17 → J5S 01-20 03:01
PROVIDERS: ADMIT Internal Medicine; ATTEND Internal Medicine
DX: N17.9 Acute kidney failure, unspecified (principal); G93.41 Metabolic encephalopathy; N39.0 Urinary tract infection, site not specified; E87.1 Hypo-osmolality and hyponatremia; E03.9 Hypothyroidism, unspecified; I10 Essential (primary) hypertension; F29 Unspecified psychosis not due to a substance or known physiological condition; Z79.84 Long term (current) use of oral hypoglycemic drugs; E86.0 Dehydration; E78.5 Hyperlipidemia, unspecified; E11.65 Type 2 diabetes mellitus with hyperglycemia; E88.09 Other disorders of plasma-protein metabolism, not elsewhere classified; D64.9 Anemia, unspecified; N28.89 Other specified disorders of kidney and ureter
CPT/HCPCS: 36415; 70450-TC; 71045-TC-FY; 76775-TC; 80048; 80053; 80061; 81003; 82010; 82436; 82570; 82803; 82962; 83036; 83721; 83735; 83970; 84100; 84133; 84300; 84443; 84484; 85025; 85027; 87086; 87186; 93005; 93010; 97116-GP; 97162-GP; 99291; C9803; J1644; U0003; U0005

== ENCOUNTER 2022-11-07 19:36 | Emergency (ER) | payer OTHER | END 2022-11-07 21:59 | disposition home or self-care (01) | LOC: FER 19:36 | DX: M79.671 Pain in right foot (principal); M79.672 Pain in left foot; R32 Unspecified urinary incontinence | CPT/HCPCS: 99283-25 ==

== ENCOUNTER 2022-12-08 07:47 | Inpatient (IN) | payer OTHER ==
[2022-12-08 09:05] LABS: ALBUMIN 4.5 g/dl (3.4-5.0); BILIRUBIN,TOTAL 0.9 mg/dl (0.2-1); CALCIUM 9.4 mg/dl (8.5-10); CREATININE 2.1 mg/dl (0.55-1.3); POTASSIUM 5.2 mmol/L (3.5-5.1)
[2022-12-08 09:09] LABS: HEMATOCRIT 39.9 % (35.4-49); HEMOGLOBIN 13.1 G/dL (11.7-16.9); MCH 28.1 pg (25.7-33.7); MCHC 32.8 g/dl (32.0-35.9); MEAN CELL VOLUME 85.8 fl (80-96); MEAN PLT VOLUME 7.4 fl (7.5-11.1); PLATELET COUNT 415.8 10^3/uL (134-434); RBC 4.65 10^6/uL (4.00-5.60); RDW 15.4 % (11.9-15.9)
[2022-12-08 09:35] LABS: PLATELET ESTIMATE ADEQUATE
[2022-12-08] MEDS ORDERED: SODIUM CHLORIDE 1,000 ML IV SCH (10:00)
[2022-12-08] MEDS ORDERED: ALBUTEROL SO4 HFA INHALER IH PRN (21:45)
[2022-12-08 21:53] LABS: HEMATOCRIT 34.1 % (35.4-49); MCH 28.5 pg (25.7-33.7); MCHC 35.1 g/dl (32.0-35.9); MEAN CELL VOLUME 81.2 fl (80-96); PLATELET COUNT 391 10^3/uL (134-434); RDW 14.1 % (11.9-15.9); WHITE BLOOD COUNT 18.1 K/mm3 (4.0-10.0)
[2022-12-08] MEDS ORDERED: BENZONATATE 100 MG CAPSULE PO PRN (22:00)
[2022-12-08 22:12] LABS: POTASSIUM 3.7 mmol/L (3.5-5.1)
[2022-12-08 22:15] LABS: CALCIUM 8.6 mg/dL (8.5-10.1)
[2022-12-08 22:16] LABS: BLOOD UREA NITROGEN 34.7 mg/dL (7-18)
[2022-12-08 22:19] LABS: CREATININE 1.6 mg/dL (0.55-1.3)
[2022-12-08] MEDS: BUDESONIDE/FORMETEROL FUMARATE 160/4.5 mcg INHALER IH SCH (23:02)
[2022-12-08] MEDS: BETHANECHOL CHLORIDE 25 MG TABLET PO SCH (23:03)
[2022-12-08] MEDS ORDERED: INSULIN (NOVOLOG) ASPART 100 UNITS/ML 10ML VIAL ONE (23:08)
[2022-12-08] MEDS: LISINOPRIL 20 MG TABLET PO SCH (23:13)
[2022-12-08] MEDS: LABETALOL HCL 200 MG TABLET (FP) PO SCH (23:13)
[2022-12-08] MEDS: GABAPENTIN 100 MG CAPSULE PO SCH (23:13)
[2022-12-08] MEDS: ATORVASTATIN CA 10 MG TABLET (FP) PO SCH (23:14)
[2022-12-08] MEDS: hydrALAZINE HCL 25 MG TABLET (FP) PO SCH (23:14)
[2022-12-08] MEDS: cloNIDine HCL 0.1 MG TABLET PO SCH (23:14)
[2022-12-08] MEDS: HEPARIN NA (PORCINE) 5,000 UNITS/ML 1ML VIAL SQ SCH (23:15)
[2022-12-08] MEDS: ACETAMINOPHEN 325 MG TABLET (FP) PO SCH (23:17)
[2022-12-08] MEDS: INSULIN SLIDING SCALE (NOVOLOG) 1 VIAL SQ SCH (23:30)
[2022-12-09] MEDS ORDERED: DEXTROSE 5%-WATER - 500 ML IV SCH (00:15)
[2022-12-09 01:02] VITALS: BMI 22.1
[2022-12-09] MEDS ORDERED: INSULIN (NOVOLOG) ASPART 100 UNITS/ML 10ML VIAL ONE ×2 (05:43→12:12)
[2022-12-09] MEDS: HEPARIN NA (PORCINE) 5,000 UNITS/ML 1ML VIAL SQ SCH ×3 (05:57→21:51)
[2022-12-09] MEDS: GABAPENTIN 100 MG CAPSULE PO SCH ×3 (05:57→21:51)
[2022-12-09] MEDS: cloNIDine HCL 0.1 MG TABLET PO SCH ×3 (05:57→21:50)
[2022-12-09] MEDS: INSULIN SLIDING SCALE (NOVOLOG) 1 VIAL SQ SCH ×5 (06:01→23:08)
[2022-12-09] MEDS: LEVOTHYROXINE NA 25 MCG TABLET (FP) PO SCH (06:08)
[2022-12-09 08:10] LABS: POTASSIUM 3.8 mmol/L (3.5-5.1)
[2022-12-09 08:20] LABS: BASO % 0.3 % (0-2.0); EOS % 1.9 % (0-4.5); HEMATOCRIT 32.6 % (35.4-49); HEMOGLOBIN 11.3 GM/dL (11.7-16.9); LYMPH % 6.6 % (8-40); MCH 28.3 pg (25.7-33.7); MCHC 34.6 g/dl (32.0-35.9); MEAN CELL VOLUME 81.8 fl (80-96); MEAN PLT VOLUME 7.8 fl (7.5-11.1); MONO % 6.3 % (3.8-10.2); NEUT % 84.9 % (42.8-82.8); PLATELET COUNT 393 10^3/uL (134-434); RBC 3.98 M/mm3 (4.00-5.60); RDW 14.2 % (11.9-15.9); WHITE BLOOD COUNT 12.2 K/mm3 (4.0-10.0)
[2022-12-09] MEDS ORDERED: TAMSULOSIN HCL 0.4 MG CAP PO SCH (08:30)
[2022-12-09 08:33] LABS: ALBUMIN 3.2 g/dl (3.4-5.0); BLOOD UREA NITROGEN 33.3 mg/dL (7-18); CALCIUM 8.4 mg/dL (8.5-10.1); MAGNESIUM 1.7 mg/dL (1.8-2.4)
[2022-12-09 08:34] LABS: CHOLESTEROL 95 mg/dL (50-200)
[2022-12-09 08:35] LABS: LDL CHOLESTEROL (ONLY SJRH) 48 mg/dL (5-100)
[2022-12-09 08:36] LABS: CREATININE 1.7 mg/dL (0.55-1.3); PHOSPHOROUS 3.2 mg/dL (2.5-4.9)
[2022-12-09 08:37] LABS: HDL CHOLESTEROL 40 mg/dL (40-60)
[2022-12-09 08:38] LABS: BILIRUBIN,TOTAL 0.7 mg/dL (0.2-1); TOT PROT 6.1 g/dl (6.4-8.2)
[2022-12-09] MEDS ORDERED: DEXTROSE 5%-NORMAL SALINE 1,000 ML IV SCH (09:15)
[2022-12-09] MEDS ORDERED: DEXTROSE 5%-WATER - 1,000 ML IV SCH ×2 (10:15→13:30)
[2022-12-09] MEDS: OLANZapine 5 MG TABLET PO SCH (10:17)
[2022-12-09] MEDS: hydrALAZINE HCL 25 MG TABLET (FP) PO SCH ×2 (10:17→21:50)
[2022-12-09] MEDS: LISINOPRIL 20 MG TABLET PO SCH (10:17)
[2022-12-09] MEDS: CYCLOBENZAPRINE HCL 5 MG TABLET PO SCH (10:17)
[2022-12-09] MEDS: LABETALOL HCL 200 MG TABLET (FP) PO SCH ×2 (10:17→21:51)
[2022-12-09] MEDS: ASPIRIN 81 MG CHEWABLE TABLETS PO SCH (10:17)
[2022-12-09] MEDS: BETHANECHOL CHLORIDE 25 MG TABLET PO SCH ×2 (10:17→21:52)
[2022-12-09] MEDS: SOLIFENACIN SUCCINATE 5 MG TAB PO SCH (10:17)
[2022-12-09] MEDS: ACETAMINOPHEN 325 MG TABLET (FP) PO SCH ×2 (10:18→21:51)
[2022-12-09] MEDS: TIMOLOL 0.25% OPHTHALMIC SOL 5 ML BOTTLE OU SCH (10:19)
[2022-12-09] MEDS: BUDESONIDE/FORMETEROL FUMARATE 160/4.5 mcg INHALER IH SCH ×2 (10:20→21:57)
[2022-12-09] MEDS ORDERED: DEXTROSE 2.5%-0.45% SALINE - 1,000 ML IV SCH (12:15)
[2022-12-09] MEDS ORDERED: MAGNESIUM OXIDE 400 MG TABLET (FP) PO ONE ×2 (15:30→17:45)
[2022-12-09 15:32] LABS: POTASSIUM 4.1 mmol/L (3.5-5.1)
[2022-12-09 15:33] LABS: CALCIUM 8.2 mg/dL (8.5-10.1)
[2022-12-09 15:34] LABS: BLOOD UREA NITROGEN 38.2 mg/dL (7-18)
[2022-12-09 15:37] LABS: CREATININE 1.8 mg/dL (0.55-1.3)
[2022-12-09] MEDS: ATORVASTATIN CA 10 MG TABLET (FP) PO SCH (21:51)
[2022-12-10] MEDS: INSULIN SLIDING SCALE (NOVOLOG) 1 VIAL SQ SCH ×5 (02:14→21:51)
[2022-12-10] MEDS ORDERED: INSULIN (NOVOLOG) ASPART 100 UNITS/ML 10ML VIAL ONE ×4 (05:57→21:43)
[2022-12-10] MEDS: HEPARIN NA (PORCINE) 5,000 UNITS/ML 1ML VIAL SQ SCH ×3 (06:09→21:51)
[2022-12-10] MEDS: cloNIDine HCL 0.1 MG TABLET PO SCH ×3 (06:09→21:47)
[2022-12-10] MEDS: GABAPENTIN 100 MG CAPSULE PO SCH ×3 (06:09→21:48)
[2022-12-10] MEDS: LEVOTHYROXINE NA 25 MCG TABLET (FP) PO SCH (06:10)
[2022-12-10 06:31] LABS: HEMATOCRIT 29.2 % (35.4-49); HEMOGLOBIN 10.6 GM/dL (11.7-16.9); MCH 29.6 pg (25.7-33.7); MCHC 36.1 g/dl (32.0-35.9); MEAN CELL VOLUME 81.9 fl (80-96); MEAN PLT VOLUME 7.7 fl (7.5-11.1); PLATELET COUNT 331 10^3/uL (134-434); RBC 3.57 M/mm3 (4.00-5.60); WHITE BLOOD COUNT 8.6 K/mm3 (4.0-10.0)
[2022-12-10 06:56] LABS: POTASSIUM 4.2 mmol/L (3.5-5.1)
[2022-12-10 07:01] LABS: ALBUMIN 2.9 g/dl (3.4-5.0); BLOOD UREA NITROGEN 32.4 mg/dL (7-18); MAGNESIUM 1.7 mg/dL (1.8-2.4)
[2022-12-10 07:04] LABS: CREATININE 1.5 mg/dL (0.55-1.3); PHOSPHOROUS 2.5 mg/dL (2.5-4.9)
[2022-12-10 07:05] LABS: BILIRUBIN,TOTAL 0.4 mg/dL (0.2-1); TOT PROT 5.7 g/dl (6.4-8.2)
[2022-12-10] MEDS: SODIUM CHLORIDE 0.45% 1,000 ML IV SCH ×2 (08:18→23:29)
[2022-12-10] MEDS: TAMSULOSIN HCL 0.4 MG CAP PO SCH (08:18)
[2022-12-10 08:37] LABS: EPI CELLS 5 /uL (0-25.1); HYALINE CASTS 2 /uL (0-3.1); PH,URINE 5.5 (5.0-8.0); URINE APPEARANCE TURBID; URINE BACTERIA 253 /uL (0-1359); URINE BILIRUBIN NEGATIVE (NEGATIVE); URINE COLOR ORANGE; URINE GLUCOSE (UA) NEGATIVE (NEGATIVE); URINE KETONE NEGATIVE (NEGATIVE); URINE LEUK ESTERASE 1+ (NEGATIVE); URINE NITRITE NEGATIVE (NEGATIVE); URINE PROTEIN 2+ (NEGATIVE); URINE UROBILINOGEN 0.2 mg/dL (0.2-1.0); URINE WBC 25 /uL (0-25.8)
[2022-12-10] MEDS ORDERED: MAGNESIUM SULF 50% (8.12 MEQ/2 ML-1 GM VIAL) IVPB ONE (08:39)
[2022-12-10 09:31] LABS: URINE CRYSTALS NEGATIVE /hpf; URINE RBC 1191.4 /uL (0-23.9)
[2022-12-10] MEDS: BETHANECHOL CHLORIDE 25 MG TABLET PO SCH ×2 (09:45→21:49)
[2022-12-10] MEDS: OLANZapine 5 MG TABLET PO SCH (09:46)
[2022-12-10] MEDS: hydrALAZINE HCL 25 MG TABLET (FP) PO SCH ×2 (09:46→21:48)
[2022-12-10] MEDS: ACETAMINOPHEN 325 MG TABLET (FP) PO SCH ×2 (09:46→21:49)
[2022-12-10] MEDS: CYCLOBENZAPRINE HCL 5 MG TABLET PO SCH (09:46)
[2022-12-10] MEDS: ASPIRIN 81 MG CHEWABLE TABLETS PO SCH (09:46)
[2022-12-10] MEDS: LABETALOL HCL 200 MG TABLET (FP) PO SCH ×2 (09:46→21:48)
[2022-12-10] MEDS: TIMOLOL 0.25% OPHTHALMIC SOL 5 ML BOTTLE OU SCH (09:47)
[2022-12-10] MEDS: BUDESONIDE/FORMETEROL FUMARATE 160/4.5 mcg INHALER IH SCH ×2 (09:47→21:56)
[2022-12-10] MEDS: SOLIFENACIN SUCCINATE 5 MG TAB PO SCH (11:42)
[2022-12-10] MEDS: ATORVASTATIN CA 10 MG TABLET (FP) PO SCH (21:47)
[2022-12-11] MEDS ORDERED: SODIUM CHLORIDE 0.45% 1,000 ML IV SCH (01:10)
[2022-12-11] MEDS ORDERED: INSULIN (NOVOLOG) ASPART 100 UNITS/ML 10ML VIAL ONE ×4 (06:02→21:23)
[2022-12-11] MEDS: cloNIDine HCL 0.1 MG TABLET PO SCH ×3 (06:11→21:10)
[2022-12-11] MEDS: LEVOTHYROXINE NA 25 MCG TABLET (FP) PO SCH (06:11)
[2022-12-11] MEDS: INSULIN SLIDING SCALE (NOVOLOG) 1 VIAL SQ SCH ×4 (06:11→21:27)
[2022-12-11] MEDS: GABAPENTIN 100 MG CAPSULE PO SCH ×3 (06:11→21:10)
[2022-12-11] MEDS: HEPARIN NA (PORCINE) 5,000 UNITS/ML 1ML VIAL SQ SCH ×3 (06:12→21:10)
[2022-12-11 07:23] LABS: HEMATOCRIT 32.8 % (35.4-49); HEMOGLOBIN 11.2 GM/dL (11.7-16.9); MCH 28.2 pg (25.7-33.7); MEAN CELL VOLUME 82.9 fl (80-96); PLATELET COUNT 356 10^3/uL (134-434); RBC 3.96 M/mm3 (4.00-5.60); WHITE BLOOD COUNT 7.1 K/mm3 (4.0-10.0)
[2022-12-11 07:44] LABS: POTASSIUM 4.3 mmol/L (3.5-5.1)
[2022-12-11 07:51] LABS: CALCIUM 8.4 mg/dL (8.5-10.1)
[2022-12-11 07:52] LABS: ALBUMIN 2.9 g/dl (3.4-5.0); BLOOD UREA NITROGEN 20.5 mg/dL (7-18); MAGNESIUM 1.7 mg/dL (1.8-2.4)
[2022-12-11 07:55] LABS: CREATININE 1.3 mg/dL (0.55-1.3); PHOSPHOROUS 2.6 mg/dL (2.5-4.9)
[2022-12-11 07:56] LABS: BILIRUBIN,TOTAL 0.6 mg/dL (0.2-1); TOT PROT 5.9 g/dl (6.4-8.2)
[2022-12-11] MEDS: TAMSULOSIN HCL 0.4 MG CAP PO SCH (08:29)
[2022-12-11] MEDS: ASPIRIN 81 MG CHEWABLE TABLETS PO SCH (10:25)
[2022-12-11] MEDS: BETHANECHOL CHLORIDE 25 MG TABLET PO SCH ×2 (10:25→23:06)
[2022-12-11] MEDS: CYCLOBENZAPRINE HCL 5 MG TABLET PO SCH (10:25)
[2022-12-11] MEDS: hydrALAZINE HCL 25 MG TABLET (FP) PO SCH ×2 (10:26→21:10)
[2022-12-11] MEDS: LABETALOL HCL 200 MG TABLET (FP) PO SCH ×2 (10:26→21:12)
[2022-12-11] MEDS: ACETAMINOPHEN 325 MG TABLET (FP) PO SCH ×2 (10:26→23:06)
[2022-12-11] MEDS: OLANZapine 5 MG TABLET PO SCH (10:26)
[2022-12-11] MEDS: SOLIFENACIN SUCCINATE 5 MG TAB PO SCH (10:27)
[2022-12-11] MEDS ORDERED: MAGNESIUM OXIDE 400 MG TABLET (FP) PO ONE (10:30)
[2022-12-11] MEDS: TIMOLOL 0.25% OPHTHALMIC SOL 5 ML BOTTLE OU SCH (10:35)
[2022-12-11] MEDS: BUDESONIDE/FORMETEROL FUMARATE 160/4.5 mcg INHALER IH SCH ×2 (10:39→21:27)
[2022-12-11] MEDS: ATORVASTATIN CA 10 MG TABLET (FP) PO SCH (21:12)
[2022-12-12] MEDS ORDERED: INSULIN (NOVOLOG) ASPART 100 UNITS/ML 10ML VIAL ONE ×4 (05:37→22:24)
[2022-12-12] MEDS: cloNIDine HCL 0.1 MG TABLET PO SCH ×3 (06:03→21:47)
[2022-12-12] MEDS: LEVOTHYROXINE NA 25 MCG TABLET (FP) PO SCH (06:03)
[2022-12-12] MEDS: HEPARIN NA (PORCINE) 5,000 UNITS/ML 1ML VIAL SQ SCH ×3 (06:03→21:47)
[2022-12-12] MEDS: GABAPENTIN 100 MG CAPSULE PO SCH ×3 (06:03→21:48)
[2022-12-12] MEDS: INSULIN SLIDING SCALE (NOVOLOG) 1 VIAL SQ SCH ×4 (06:08→22:24)
[2022-12-12 08:31] LABS: HEMATOCRIT 37.8 % (35.4-49); HEMOGLOBIN 12.6 GM/dL (11.7-16.9); MCHC 33.4 g/dl (32.0-35.9); MEAN CELL VOLUME 83.7 fl (80-96); MEAN PLT VOLUME 7.6 fl (7.5-11.1); PLATELET COUNT 464 10^3/uL (134-434); RBC 4.52 M/mm3 (4.00-5.60); RDW 14.7 % (11.9-15.9); WHITE BLOOD COUNT 11.7 K/mm3 (4.0-10.0)
[2022-12-12 08:47] LABS: POTASSIUM 4.6 mmol/L (3.5-5.1)
[2022-12-12 08:50] LABS: BLOOD UREA NITROGEN 17.8 mg/dL (7-18); CALCIUM 9.3 mg/dL (8.5-10.1); MAGNESIUM 1.8 mg/dL (1.8-2.4)
[2022-12-12 08:53] LABS: CREATININE 1.3 mg/dL (0.55-1.3); PHOSPHOROUS 2.2 mg/dL (2.5-4.9)
[2022-12-12 08:55] LABS: BILIRUBIN,TOTAL 0.4 mg/dL (0.2-1); TOT PROT 7.1 g/dl (6.4-8.2)
[2022-12-12 09:01] LABS: ALBUMIN 3.6 g/dl (3.4-5.0)
[2022-12-12] MEDS: hydrALAZINE HCL 25 MG TABLET (FP) PO SCH ×2 (10:03→21:47)
[2022-12-12] MEDS: OLANZapine 5 MG TABLET PO SCH (10:03)
[2022-12-12] MEDS: TAMSULOSIN HCL 0.4 MG CAP PO SCH (10:03)
[2022-12-12] MEDS: CYCLOBENZAPRINE HCL 5 MG TABLET PO SCH (10:04)
[2022-12-12] MEDS: ASPIRIN 81 MG CHEWABLE TABLETS PO SCH (10:04)
[2022-12-12] MEDS: LABETALOL HCL 200 MG TABLET (FP) PO SCH ×2 (10:04→21:48)
[2022-12-12] MEDS: ACETAMINOPHEN 325 MG TABLET (FP) PO SCH ×2 (10:04→21:48)
[2022-12-12] MEDS: LISINOPRIL 20 MG TABLET PO SCH ×2 (10:04→21:48)
[2022-12-12] MEDS: SOLIFENACIN SUCCINATE 5 MG TAB PO SCH (10:05)
[2022-12-12] MEDS: BETHANECHOL CHLORIDE 25 MG TABLET PO SCH ×2 (10:05→21:50)
[2022-12-12] MEDS: BUDESONIDE/FORMETEROL FUMARATE 160/4.5 mcg INHALER IH SCH ×2 (10:06→21:48)
[2022-12-12] MEDS: TIMOLOL 0.25% OPHTHALMIC SOL 5 ML BOTTLE OU SCH (10:06)
[2022-12-12] MEDS ORDERED: NAPH,MB-DB/K PH,MBDB POWDER PACKET PO ONE (12:59)
[2022-12-12] MEDS: ATORVASTATIN CA 10 MG TABLET (FP) PO SCH (21:48)
[2022-12-13] MEDS: HEPARIN NA (PORCINE) 5,000 UNITS/ML 1ML VIAL SQ SCH ×3 (05:59→21:38)
[2022-12-13] MEDS: cloNIDine HCL 0.1 MG TABLET PO SCH ×3 (05:59→21:38)
[2022-12-13] MEDS: LEVOTHYROXINE NA 25 MCG TABLET (FP) PO SCH (06:00)
[2022-12-13] MEDS: GABAPENTIN 100 MG CAPSULE PO SCH ×3 (06:00→21:39)
[2022-12-13] MEDS ORDERED: INSULIN (NOVOLOG) ASPART 100 UNITS/ML 10ML VIAL ONE ×3 (06:02→21:48)
[2022-12-13] MEDS: INSULIN SLIDING SCALE (NOVOLOG) 1 VIAL SQ SCH ×5 (06:11→21:49)
[2022-12-13 08:46] LABS: INR 1.01 (0.83-1.09); PROTHROMBIN TIME (PATIENT) 11.7 SEC (9.7-13.0)
[2022-12-13 08:48] LABS: ACTIVATED PTT 31.7 SECONDS (25.2-36.5)
[2022-12-13 09:02] LABS: POTASSIUM 4.8 mmol/L (3.5-5.1)
[2022-12-13 09:26] LABS: ALBUMIN 3.6 g/dl (3.4-5.0); BLOOD UREA NITROGEN 26.4 mg/dL (7-18); CALCIUM 9.5 mg/dL (8.5-10.1)
[2022-12-13 09:27] LABS: MAGNESIUM 1.9 mg/dL (1.8-2.4)
[2022-12-13 09:29] LABS: CREATININE 1.7 mg/dL (0.55-1.3); PHOSPHOROUS 3.6 mg/dL (2.5-4.9)
[2022-12-13 09:30] LABS: BILIRUBIN,TOTAL 0.5 mg/dL (0.2-1); TOT PROT 7.3 g/dl (6.4-8.2)
[2022-12-13] MEDS: TAMSULOSIN HCL 0.4 MG CAP PO SCH (09:44)
[2022-12-13] MEDS: CYCLOBENZAPRINE HCL 5 MG TABLET PO SCH (09:44)
[2022-12-13] MEDS: SOLIFENACIN SUCCINATE 5 MG TAB PO SCH (09:44)
[2022-12-13] MEDS: ACETAMINOPHEN 325 MG TABLET (FP) PO SCH ×2 (09:44→21:39)
[2022-12-13] MEDS: hydrALAZINE HCL 25 MG TABLET (FP) PO SCH ×2 (09:45→21:39)
[2022-12-13] MEDS: LABETALOL HCL 200 MG TABLET (FP) PO SCH ×2 (09:45→21:39)
[2022-12-13] MEDS: BETHANECHOL CHLORIDE 25 MG TABLET PO SCH ×2 (09:45→21:38)
[2022-12-13] MEDS: NIFEdipine E.R. 30 MG TABLET PO SCH (09:45)
[2022-12-13] MEDS: LISINOPRIL 20 MG TABLET PO SCH ×2 (09:45→21:40)
[2022-12-13] MEDS: OLANZapine 5 MG TABLET PO SCH (09:45)
[2022-12-13] MEDS: ASPIRIN 81 MG CHEWABLE TABLETS PO SCH (09:45)
[2022-12-13] MEDS: TIMOLOL 0.25% OPHTHALMIC SOL 5 ML BOTTLE OU SCH (09:46)
[2022-12-13] MEDS: BUDESONIDE/FORMETEROL FUMARATE 160/4.5 mcg INHALER IH SCH ×2 (09:46→21:40)
[2022-12-13 10:15] LABS: BASO % 0.6 % (0-2.0); EOS % 1.5 % (0-4.5); HEMATOCRIT 35.6 % (35.4-49); LYMPH % 5.6 % (8-40); MCH 28.1 pg (25.7-33.7); MCHC 33.8 g/dl (32.0-35.9); MEAN CELL VOLUME 83.2 fl (80-96); MEAN PLT VOLUME 7.6 fl (7.5-11.1); MONO % 7.4 % (3.8-10.2); NEUT % 84.9 % (42.8-82.8); PLATELET COUNT 498 10^3/uL (134-434); RBC 4.28 M/mm3 (4.00-5.60); RDW 14.6 % (11.9-15.9); WHITE BLOOD COUNT 12.6 K/mm3 (4.0-10.0)
[2022-12-13] MEDS ORDERED: HALOPERIDOL LACTATE 5 MG/ML IM ONE (16:31)
[2022-12-13] MEDS ORDERED: ALBUTEROL SO4 HFA INHALER IH PRN (16:34)
[2022-12-13] MEDS ORDERED: BENZONATATE 100 MG CAPSULE PO PRN (16:34)
[2022-12-13] MEDS ORDERED: OLANZapine 2.5 MG TABLET PO ONE (17:25)
[2022-12-13] MEDS: ATORVASTATIN CA 10 MG TABLET (FP) PO SCH (21:39)
[2022-12-14] MEDS: HEPARIN NA (PORCINE) 5,000 UNITS/ML 1ML VIAL SQ SCH ×3 (06:14→21:32)
[2022-12-14] MEDS: INSULIN SLIDING SCALE (NOVOLOG) 1 VIAL SQ SCH ×4 (06:14→21:32)
[2022-12-14] MEDS: LEVOTHYROXINE NA 25 MCG TABLET (FP) PO SCH (06:15)
[2022-12-14] MEDS: GABAPENTIN 100 MG CAPSULE PO SCH ×3 (06:15→21:33)
[2022-12-14] MEDS: cloNIDine HCL 0.1 MG TABLET PO SCH ×3 (06:15→21:33)
[2022-12-14 09:14] LABS: HEMOGLOBIN 11.5 GM/dL (11.7-16.9); MCH 28.3 pg (25.7-33.7); MCHC 33.9 g/dl (32.0-35.9); MEAN CELL VOLUME 83.4 fl (80-96); MEAN PLT VOLUME 7.3 fl (7.5-11.1); PLATELET COUNT 501 10^3/uL (134-434); RBC 4.08 M/mm3 (4.00-5.60); RDW 14.3 % (11.9-15.9); WHITE BLOOD COUNT 15.3 K/mm3 (4.0-10.0)
[2022-12-14] MEDS: ACETAMINOPHEN 325 MG TABLET (FP) PO SCH ×2 (09:23→21:34)
[2022-12-14] MEDS: TAMSULOSIN HCL 0.4 MG CAP PO SCH (09:23)
[2022-12-14] MEDS: ASPIRIN 81 MG CHEWABLE TABLETS PO SCH (09:23)
[2022-12-14] MEDS: hydrALAZINE HCL 25 MG TABLET (FP) PO SCH ×2 (09:24→21:33)
[2022-12-14] MEDS: SOLIFENACIN SUCCINATE 5 MG TAB PO SCH (09:24)
[2022-12-14] MEDS: NIFEdipine E.R. 30 MG TABLET PO SCH (09:24)
[2022-12-14] MEDS: LABETALOL HCL 200 MG TABLET (FP) PO SCH ×2 (09:24→21:33)
[2022-12-14] MEDS: LISINOPRIL 20 MG TABLET PO SCH (09:24)
[2022-12-14] MEDS: OLANZapine 5 MG TABLET PO SCH (09:24)
[2022-12-14] MEDS: BETHANECHOL CHLORIDE 25 MG TABLET PO SCH ×2 (09:25→21:58)
[2022-12-14] MEDS: BUDESONIDE/FORMETEROL FUMARATE 160/4.5 mcg INHALER IH SCH ×2 (09:26→21:33)
[2022-12-14] MEDS: TIMOLOL 0.25% OPHTHALMIC SOL 5 ML BOTTLE OU SCH (09:26)
[2022-12-14] MEDS: CYCLOBENZAPRINE HCL 5 MG TABLET PO SCH (09:27)
[2022-12-14 09:28] LABS: POTASSIUM 4.9 mmol/L (3.5-5.1)
[2022-12-14 09:32] LABS: ALBUMIN 3.4 g/dl (3.4-5.0); BLOOD UREA NITROGEN 34.6 mg/dL (7-18); CALCIUM 9.5 mg/dL (8.5-10.1); MAGNESIUM 1.8 mg/dL (1.8-2.4)
[2022-12-14 09:36] LABS: BILIRUBIN,TOTAL 0.6 mg/dL (0.2-1); CREATININE 1.8 mg/dL (0.55-1.3); PHOSPHOROUS 4.9 mg/dL (2.5-4.9); TOT PROT 6.7 g/dl (6.4-8.2)
[2022-12-14] MEDS ORDERED: INSULIN (NOVOLOG) ASPART 100 UNITS/ML 10ML VIAL ONE ×2 (10:54→17:14)
[2022-12-14 20:57] LABS: RETICULOCYTES 0.91 % (0.5-1.5)
[2022-12-14] MEDS: ATORVASTATIN CA 10 MG TABLET (FP) PO SCH (21:33)
[2022-12-14 22:16] LABS: ANISOCYTOSIS 1+; MACROCYTOSIS 0
[2022-12-15] MEDS: GABAPENTIN 100 MG CAPSULE PO SCH ×3 (06:21→21:55)
[2022-12-15] MEDS: HEPARIN NA (PORCINE) 5,000 UNITS/ML 1ML VIAL SQ SCH ×3 (06:21→21:55)
[2022-12-15] MEDS: LEVOTHYROXINE NA 25 MCG TABLET (FP) PO SCH (06:21)
[2022-12-15] MEDS: cloNIDine HCL 0.1 MG TABLET PO SCH ×3 (06:21→21:55)
[2022-12-15] MEDS: INSULIN SLIDING SCALE (NOVOLOG) 1 VIAL SQ SCH ×4 (06:21→22:05)
[2022-12-15] MEDS: TAMSULOSIN HCL 0.4 MG CAP PO SCH (08:00)
[2022-12-15 09:02] LABS: HEMATOCRIT 32.9 % (35.4-49); MCHC 33.6 g/dl (32.0-35.9); MEAN CELL VOLUME 83.4 fl (80-96); MEAN PLT VOLUME 7.9 fl (7.5-11.1); PLATELET COUNT 517 10^3/uL (134-434); RBC 3.94 M/mm3 (4.00-5.60); RDW 14.2 % (11.9-15.9); WHITE BLOOD COUNT 14.6 K/mm3 (4.0-10.0)
[2022-12-15] MEDS: SOLIFENACIN SUCCINATE 5 MG TAB PO SCH (09:17)
[2022-12-15] MEDS: ASPIRIN 81 MG CHEWABLE TABLETS PO SCH (09:17)
[2022-12-15] MEDS: NIFEdipine E.R. 30 MG TABLET PO SCH (09:17)
[2022-12-15] MEDS: CYCLOBENZAPRINE HCL 5 MG TABLET PO SCH (09:17)
[2022-12-15] MEDS: OLANZapine 5 MG TABLET PO SCH (09:17)
[2022-12-15] MEDS: hydrALAZINE HCL 25 MG TABLET (FP) PO SCH ×2 (09:17→21:55)
[2022-12-15] MEDS: LABETALOL HCL 200 MG TABLET (FP) PO SCH ×2 (09:18→21:55)
[2022-12-15] MEDS: ACETAMINOPHEN 325 MG TABLET (FP) PO SCH ×2 (09:18→21:55)
[2022-12-15] MEDS: BETHANECHOL CHLORIDE 25 MG TABLET PO SCH ×2 (09:18→21:56)
[2022-12-15] MEDS: TIMOLOL 0.25% OPHTHALMIC SOL 5 ML BOTTLE OU SCH (09:19)
[2022-12-15] MEDS: BUDESONIDE/FORMETEROL FUMARATE 160/4.5 mcg INHALER IH SCH ×2 (09:19→21:57)
[2022-12-15 09:30] LABS: POTASSIUM 5.2 mmol/L (3.5-5.1)
[2022-12-15 09:33] LABS: ALBUMIN 3.5 g/dl (3.4-5.0); CALCIUM 9.4 mg/dL (8.5-10.1)
[2022-12-15 09:34] LABS: BLOOD UREA NITROGEN 39.8 mg/dL (7-18)
[2022-12-15 09:39] LABS: BILIRUBIN,TOTAL 0.7 mg/dL (0.2-1)
[2022-12-15] MEDS ORDERED: SODIUM ZIRCONIUM CYCLOSILICATE (LOKELMA) 5 GM PACKET PO SCH (11:45)
[2022-12-15] MEDS ORDERED: SODIUM CHLORIDE 1,000 ML IV SCH (12:00)
[2022-12-15] MEDS ORDERED: INSULIN (NOVOLOG) ASPART 100 UNITS/ML 10ML VIAL ONE ×2 (12:14→19:32)
[2022-12-15] MEDS ORDERED: SODIUM ZIRCONIUM CYCLOSILICATE (LOKELMA) 5 GM PACKET PO ONE (15:08)
[2022-12-15] MEDS: AMOX TR/POT CLAV 875MG/125MG TABLETS (FP) PO SCH (17:08)
[2022-12-15] MEDS: ATORVASTATIN CA 10 MG TABLET (FP) PO SCH (21:55)
[2022-12-16] MEDS: LEVOTHYROXINE NA 25 MCG TABLET (FP) PO SCH (06:32)
[2022-12-16] MEDS: GABAPENTIN 100 MG CAPSULE PO SCH ×3 (06:34→22:57)
[2022-12-16] MEDS: HEPARIN NA (PORCINE) 5,000 UNITS/ML 1ML VIAL SQ SCH ×3 (06:34→22:56)
[2022-12-16] MEDS: cloNIDine HCL 0.1 MG TABLET PO SCH ×3 (06:35→22:57)
[2022-12-16] MEDS: INSULIN SLIDING SCALE (NOVOLOG) 1 VIAL SQ SCH ×4 (06:35→22:59)
[2022-12-16] MEDS: TAMSULOSIN HCL 0.4 MG CAP PO SCH (08:01)
[2022-12-16] MEDS: AMOX TR/POT CLAV 875MG/125MG TABLETS (FP) PO SCH ×2 (08:01→17:58)
[2022-12-16 08:15] LABS: BASO % 0.7 % (0-2.0); EOS % 1.3 % (0-4.5); HEMATOCRIT 28.8 % (35.4-49); HEMOGLOBIN 9.8 GM/dL (11.7-16.9); LYMPH % 7.8 % (8-40); MCH 28.6 pg (25.7-33.7); MCHC 34.2 g/dl (32.0-35.9); MEAN CELL VOLUME 83.6 fl (80-96); MEAN PLT VOLUME 7.8 fl (7.5-11.1); MONO % 13.9 % (3.8-10.2); NEUT % 76.3 % (42.8-82.8); PLATELET COUNT 430 10^3/uL (134-434); RBC 3.44 M/mm3 (4.00-5.60); RDW 14.7 % (11.9-15.9); WHITE BLOOD COUNT 9.7 K/mm3 (4.0-10.0)
[2022-12-16 08:18] LABS: POTASSIUM 4.7 mmol/L (3.5-5.1)
[2022-12-16 08:29] LABS: CALCIUM 8.7 mg/dL (8.5-10.1)
[2022-12-16 08:31] LABS: BLOOD UREA NITROGEN 43.5 mg/dL (7-18); MAGNESIUM 1.7 mg/dL (1.8-2.4)
[2022-12-16 08:33] LABS: CREATININE 1.9 mg/dL (0.55-1.3); PHOSPHOROUS 4.6 mg/dL (2.5-4.9)
[2022-12-16] MEDS ORDERED: MAGNESIUM SULF 50% (8.12 MEQ/2 ML-1 GM VIAL) IVPB ONE (09:14)
[2022-12-16] MEDS ORDERED: LISINOPRIL 20 MG TABLET PO SCH (10:00)
[2022-12-16] MEDS: SOLIFENACIN SUCCINATE 5 MG TAB PO SCH (10:48)
[2022-12-16] MEDS: ACETAMINOPHEN 325 MG TABLET (FP) PO SCH ×2 (10:48→22:57)
[2022-12-16] MEDS: OLANZapine 5 MG TABLET PO SCH (10:48)
[2022-12-16] MEDS: NIFEdipine E.R. 30 MG TABLET PO SCH (10:48)
[2022-12-16] MEDS: hydrALAZINE HCL 25 MG TABLET (FP) PO SCH ×2 (10:48→22:56)
[2022-12-16] MEDS: CYCLOBENZAPRINE HCL 5 MG TABLET PO SCH (10:48)
[2022-12-16] MEDS: LABETALOL HCL 200 MG TABLET (FP) PO SCH ×2 (10:48→22:57)
[2022-12-16] MEDS: ASPIRIN 81 MG CHEWABLE TABLETS PO SCH (10:48)
[2022-12-16] MEDS: BETHANECHOL CHLORIDE 25 MG TABLET PO SCH ×2 (10:49→23:00)
[2022-12-16] MEDS: BUDESONIDE/FORMETEROL FUMARATE 160/4.5 mcg INHALER IH SCH ×2 (10:51→23:00)
[2022-12-16] MEDS: TIMOLOL 0.25% OPHTHALMIC SOL 5 ML BOTTLE OU SCH (10:51)
[2022-12-16 14:42] VITALS: RESP 18
[2022-12-16] MEDS: ATORVASTATIN CA 10 MG TABLET (FP) PO SCH (22:57)
[2022-12-17] MEDS: HEPARIN NA (PORCINE) 5,000 UNITS/ML 1ML VIAL SQ SCH ×3 (05:58→21:38)
[2022-12-17] MEDS: GABAPENTIN 100 MG CAPSULE PO SCH ×3 (05:58→21:36)
[2022-12-17] MEDS: cloNIDine HCL 0.1 MG TABLET PO SCH ×3 (05:58→21:36)
[2022-12-17] MEDS: INSULIN SLIDING SCALE (NOVOLOG) 1 VIAL SQ SCH ×4 (06:02→21:46)
[2022-12-17] MEDS: LEVOTHYROXINE NA 25 MCG TABLET (FP) PO SCH (06:02)
[2022-12-17 08:09] LABS: POTASSIUM 4.8 mmol/L (3.5-5.1)
[2022-12-17 08:12] LABS: CALCIUM 8.5 mg/dL (8.5-10.1)
[2022-12-17 08:13] LABS: MAGNESIUM 1.9 mg/dL (1.8-2.4)
[2022-12-17] MEDS: AMOX TR/POT CLAV 875MG/125MG TABLETS (FP) PO SCH ×2 (08:14→17:14)
[2022-12-17] MEDS: TAMSULOSIN HCL 0.4 MG CAP PO SCH (08:14)
[2022-12-17 08:16] LABS: CREATININE 1.6 mg/dL (0.55-1.3)
[2022-12-17 08:17] LABS: BILIRUBIN,TOTAL 0.2 mg/dL (0.2-1); TOT PROT 5.8 g/dl (6.4-8.2)
[2022-12-17 08:19] LABS: HEMATOCRIT 28.6 % (35.4-49); HEMOGLOBIN 10.1 GM/dL (11.7-16.9); MCH 29.6 pg (25.7-33.7); MCHC 35.5 g/dl (32.0-35.9); MEAN CELL VOLUME 83.3 fl (80-96); MEAN PLT VOLUME 7.7 fl (7.5-11.1); PLATELET COUNT 473 10^3/uL (134-434); RBC 3.43 M/mm3 (4.00-5.60); RDW 14.5 % (11.9-15.9); WHITE BLOOD COUNT 7.1 K/mm3 (4.0-10.0)
[2022-12-17 08:26] LABS: ALBUMIN 2.6 g/dl (3.4-5.0)
[2022-12-17] MEDS: hydrALAZINE HCL 25 MG TABLET (FP) PO SCH ×2 (09:58→21:36)
[2022-12-17] MEDS: ACETAMINOPHEN 325 MG TABLET (FP) PO SCH ×2 (09:58→21:36)
[2022-12-17] MEDS: LABETALOL HCL 200 MG TABLET (FP) PO SCH ×2 (09:58→21:36)
[2022-12-17] MEDS: OLANZapine 5 MG TABLET PO SCH (09:58)
[2022-12-17] MEDS: CYCLOBENZAPRINE HCL 5 MG TABLET PO SCH (09:58)
[2022-12-17] MEDS: SOLIFENACIN SUCCINATE 5 MG TAB PO SCH (09:58)
[2022-12-17] MEDS: ASPIRIN 81 MG CHEWABLE TABLETS PO SCH (09:58)
[2022-12-17] MEDS: NIFEdipine E.R. 30 MG TABLET PO SCH (09:58)
[2022-12-17] MEDS: BETHANECHOL CHLORIDE 25 MG TABLET PO SCH ×2 (10:00→21:37)
[2022-12-17] MEDS: TIMOLOL 0.25% OPHTHALMIC SOL 5 ML BOTTLE OU SCH (10:02)
[2022-12-17] MEDS: BUDESONIDE/FORMETEROL FUMARATE 160/4.5 mcg INHALER IH SCH ×2 (10:03→21:39)
[2022-12-17] MEDS ORDERED: INSULIN (NOVOLOG) ASPART 100 UNITS/ML 10ML VIAL ONE (11:50)
[2022-12-17] MEDS: ATORVASTATIN CA 10 MG TABLET (FP) PO SCH (21:36)
[2022-12-18] MEDS: cloNIDine HCL 0.1 MG TABLET PO SCH ×3 (06:14→21:59)
[2022-12-18] MEDS: GABAPENTIN 100 MG CAPSULE PO SCH ×3 (06:14→21:59)
[2022-12-18] MEDS: LEVOTHYROXINE NA 25 MCG TABLET (FP) PO SCH (06:14)
[2022-12-18] MEDS: HEPARIN NA (PORCINE) 5,000 UNITS/ML 1ML VIAL SQ SCH ×3 (06:14→22:00)
[2022-12-18] MEDS: INSULIN SLIDING SCALE (NOVOLOG) 1 VIAL SQ SCH ×4 (06:50→22:00)
[2022-12-18] MEDS: AMOX TR/POT CLAV 875MG/125MG TABLETS (FP) PO SCH ×2 (08:35→17:21)
[2022-12-18] MEDS: TAMSULOSIN HCL 0.4 MG CAP PO SCH (08:35)
[2022-12-18] MEDS: ASPIRIN 81 MG CHEWABLE TABLETS PO SCH (09:44)
[2022-12-18] MEDS: OLANZapine 5 MG TABLET PO SCH (09:44)
[2022-12-18] MEDS: ACETAMINOPHEN 325 MG TABLET (FP) PO SCH ×2 (09:44→21:57)
[2022-12-18] MEDS: SOLIFENACIN SUCCINATE 5 MG TAB PO SCH (09:45)
[2022-12-18] MEDS: CYCLOBENZAPRINE HCL 5 MG TABLET PO SCH (09:45)
[2022-12-18] MEDS: BETHANECHOL CHLORIDE 25 MG TABLET PO SCH ×2 (09:45→22:01)
[2022-12-18] MEDS: NIFEdipine E.R. 30 MG TABLET PO SCH (09:45)
[2022-12-18] MEDS: LABETALOL HCL 200 MG TABLET (FP) PO SCH ×2 (09:45→21:59)
[2022-12-18] MEDS: TIMOLOL 0.25% OPHTHALMIC SOL 5 ML BOTTLE OU SCH (09:47)
[2022-12-18] MEDS: BUDESONIDE/FORMETEROL FUMARATE 160/4.5 mcg INHALER IH SCH ×2 (09:48→22:02)
[2022-12-18] MEDS: hydrALAZINE HCL 25 MG TABLET (FP) PO SCH ×2 (09:48→21:59)
[2022-12-18] MEDS ORDERED: INSULIN (NOVOLOG) ASPART 100 UNITS/ML 10ML VIAL ONE (11:35)
[2022-12-18] MEDS: ATORVASTATIN CA 10 MG TABLET (FP) PO SCH (21:59)
[2022-12-19] MEDS: GABAPENTIN 100 MG CAPSULE PO SCH ×3 (05:48→21:27)
[2022-12-19] MEDS: cloNIDine HCL 0.1 MG TABLET PO SCH ×3 (05:48→21:26)
[2022-12-19] MEDS: HEPARIN NA (PORCINE) 5,000 UNITS/ML 1ML VIAL SQ SCH ×3 (05:48→21:26)
[2022-12-19] MEDS: INSULIN SLIDING SCALE (NOVOLOG) 1 VIAL SQ SCH ×4 (06:33→21:54)
[2022-12-19] MEDS: LEVOTHYROXINE NA 25 MCG TABLET (FP) PO SCH (06:33)
[2022-12-19] MEDS: AMOX TR/POT CLAV 875MG/125MG TABLETS (FP) PO SCH ×2 (07:50→17:28)
[2022-12-19] MEDS: TAMSULOSIN HCL 0.4 MG CAP PO SCH (07:50)
[2022-12-19] MEDS: LABETALOL HCL 200 MG TABLET (FP) PO SCH ×2 (09:17→21:26)
[2022-12-19] MEDS: OLANZapine 5 MG TABLET PO SCH (09:17)
[2022-12-19] MEDS: ACETAMINOPHEN 325 MG TABLET (FP) PO SCH ×2 (09:17→21:27)
[2022-12-19] MEDS: CYCLOBENZAPRINE HCL 5 MG TABLET PO SCH (09:17)
[2022-12-19] MEDS: NIFEdipine E.R. 30 MG TABLET PO SCH (09:17)
[2022-12-19] MEDS: hydrALAZINE HCL 25 MG TABLET (FP) PO SCH ×2 (09:17→21:26)
[2022-12-19] MEDS: SOLIFENACIN SUCCINATE 5 MG TAB PO SCH (09:17)
[2022-12-19] MEDS: ASPIRIN 81 MG CHEWABLE TABLETS PO SCH (09:17)
[2022-12-19] MEDS: BETHANECHOL CHLORIDE 25 MG TABLET PO SCH ×2 (09:18→21:27)
[2022-12-19] MEDS: TIMOLOL 0.25% OPHTHALMIC SOL 5 ML BOTTLE OU SCH (09:20)
[2022-12-19] MEDS: BUDESONIDE/FORMETEROL FUMARATE 160/4.5 mcg INHALER IH SCH ×2 (09:20→21:28)
[2022-12-19] MEDS ORDERED: DOCUSATE SODIUM 100 MG CAPSULE (FP) PO PRN (15:44)
[2022-12-19] MEDS: POLYETHYLENE GLYCOL (HEALTHYLAX) 3350 17 GM PACKET PO SCH (16:43)
[2022-12-19] MEDS ORDERED: INSULIN (NOVOLOG) ASPART 100 UNITS/ML 10ML VIAL ONE (21:05)
[2022-12-19] MEDS: ATORVASTATIN CA 10 MG TABLET (FP) PO SCH (21:26)
[2022-12-20] MEDS: GABAPENTIN 100 MG CAPSULE PO SCH ×2 (06:14→13:04)
[2022-12-20] MEDS: HEPARIN NA (PORCINE) 5,000 UNITS/ML 1ML VIAL SQ SCH ×2 (06:14→13:04)
[2022-12-20] MEDS: cloNIDine HCL 0.1 MG TABLET PO SCH ×2 (06:14→13:04)
[2022-12-20] MEDS: INSULIN SLIDING SCALE (NOVOLOG) 1 VIAL SQ SCH ×2 (06:22→11:33)
[2022-12-20] MEDS: LEVOTHYROXINE NA 25 MCG TABLET (FP) PO SCH (06:27)
[2022-12-20] MEDS: AMOX TR/POT CLAV 875MG/125MG TABLETS (FP) PO SCH (07:37)
[2022-12-20] MEDS: TAMSULOSIN HCL 0.4 MG CAP PO SCH (07:37)
[2022-12-20] MEDS: CYCLOBENZAPRINE HCL 5 MG TABLET PO SCH (09:57)
[2022-12-20] MEDS: ASPIRIN 81 MG CHEWABLE TABLETS PO SCH (09:57)
[2022-12-20] MEDS: SOLIFENACIN SUCCINATE 5 MG TAB PO SCH (09:57)
[2022-12-20] MEDS: hydrALAZINE HCL 25 MG TABLET (FP) PO SCH (09:57)
[2022-12-20] MEDS: OLANZapine 5 MG TABLET PO SCH (09:58)
[2022-12-20] MEDS: LABETALOL HCL 200 MG TABLET (FP) PO SCH (09:58)
[2022-12-20] MEDS: BETHANECHOL CHLORIDE 25 MG TABLET PO SCH (09:58)
[2022-12-20] MEDS: NIFEdipine E.R. 30 MG TABLET PO SCH (09:58)
[2022-12-20] MEDS: ACETAMINOPHEN 325 MG TABLET (FP) PO SCH (09:58)
[2022-12-20] MEDS: BUDESONIDE/FORMETEROL FUMARATE 160/4.5 mcg INHALER IH SCH (09:59)
[2022-12-20] MEDS: TIMOLOL 0.25% OPHTHALMIC SOL 5 ML BOTTLE OU SCH (09:59)
[2022-12-20] MEDS: POLYETHYLENE GLYCOL (HEALTHYLAX) 3350 17 GM PACKET PO SCH (10:03)
[2022-12-20 10:16] VITALS: BP 131/66; PULSE 74; TEMP 98
== END 2022-12-20 16:03 | DRG 640 ==
LOC: FER 07:47 → J4W 19:24 → J6S 12-13 14:10
PROVIDERS: ADMIT Internal Medicine; ATTEND Internal Medicine
DX: E87.1 Hypo-osmolality and hyponatremia (principal); G93.41 Metabolic encephalopathy; J69.0 Pneumonitis due to inhalation of food and vomit; N17.9 Acute kidney failure, unspecified; I24.8 Other forms of acute ischemic heart disease; N39.0 Urinary tract infection, site not specified; E11.9 Type 2 diabetes mellitus without complications; I10 Essential (primary) hypertension; E78.5 Hyperlipidemia, unspecified; J44.9 Chronic obstructive pulmonary disease, unspecified; R53.1 Weakness; D72.829 Elevated white blood cell count, unspecified; R77.8 Other specified abnormalities of plasma proteins; I16.0 Hypertensive urgency; E87.6 Hypokalemia; E03.9 Hypothyroidism, unspecified; R33.8 Other retention of urine; D75.839 Thrombocytosis, unspecified; E86.1 Hypovolemia; E87.5 Hyperkalemia; R47.1 Dysarthria and anarthria; B95.2 Enterococcus as the cause of diseases classified elsewhere; F28 Other psychotic disorder not due to a substance or known physiological condition; N40.0 Benign prostatic hyperplasia without lower urinary tract symptoms
CPT/HCPCS: 0241U-QW; 36415; 70450-TC; 70551-TC; 71045-TC-FY; 71046-TC-FY; 76775-TC; 80048; 80053; 80061; 81003; 81015; 82308; 82550; 82553; 82607; 82728; 82962; 83540; 83550; 83735; 83930; 83935; 84100; 84295; 84300; 84484; 85025; 85027; 85045; 85610; 85730; 87040; 87086; 87186; 93005; 97116-GP; 97162-GP; 99285-25; C9803-CS; J1644; U0003; U0005

== ENCOUNTER 2024-02-17 15:58 | Emergency (ER) | payer OTHER ==
[2024-02-17 16:40] VITALS: TEMP 98.5; BMI 27.8
[2024-02-17 17:24] LABS: HEMOGLOBIN 11.4 GM/dL (11.7-16.9); MCH 27.1 pg (25.7-33.7); MCHC 32.7 g/dl (32.0-35.9); MEAN CELL VOLUME 82.9 fl (80-96); MEAN PLT VOLUME 7.5 fl (7.5-11.1); PLATELET COUNT 338 10^3/uL (134-434); RBC 4.22 M/mm3 (4.00-5.60); RDW 15.7 % (11.9-15.9); WHITE BLOOD COUNT 10.2 K/mm3 (4.0-10.0)
[2024-02-17 17:49] LABS: POTASSIUM 4.6 mmol/L (3.5-5.1)
[2024-02-17 17:51] LABS: ANISOCYTOSIS 2+; CALCIUM 8.6 mg/dL (8.5-10.1); MACROCYTOSIS 0; TEAR DROP CELLS 1+
[2024-02-17 17:52] LABS: ALBUMIN 3.2 g/dl (3.4-5.0); BLOOD UREA NITROGEN 20.9 mg/dL (7-18)
[2024-02-17 17:54] LABS: CREATININE 1.8 mg/dL (0.55-1.3)
[2024-02-17 17:56] LABS: TOT PROT 6.9 g/dl (6.4-8.2)
[2024-02-17 17:57] LABS: BILIRUBIN,TOTAL 0.2 mg/dL (0.2-1)
[2024-02-17 22:32] LABS: EPI CELLS 9 /uL (0-25.1); HYALINE CASTS 1 /uL (0-3.1); PH,URINE 5.5 (5.0-8.0); URINE APPEARANCE TURBID; URINE BACTERIA >9,000 /uL (0-1359); URINE BILIRUBIN NEGATIVE (NEGATIVE); URINE COLOR YELLOW; URINE GLUCOSE (UA) NEGATIVE (NEGATIVE); URINE KETONE TRACE (NEGATIVE); URINE LEUK ESTERASE 3+ (NEGATIVE); URINE NITRITE POSITIVE (NEGATIVE); URINE PROTEIN 1+ (NEGATIVE); URINE UROBILINOGEN 0.2 mg/dL (0.2-1.0); URINE WBC 2242 /uL (0-25.8)
[2024-02-17 22:45] LABS: URINE RBC 5 /uL (0-23.9)
[2024-02-17] MEDS: CIPROFLOXACIN 400 MG/D5W 400 MG/200 ML IVPB IVPB ONE (23:52)
[2024-02-18 03:08] VITALS: BP 162/82; PULSE 74; RESP 16
== END 2024-02-18 05:07 ==
LOC: JER 15:58
DX: I12.9 Hypertensive chronic kidney disease with stage 1 through stage 4 chronic kidney disease, or unspecified chronic kidney disease (principal); N18.9 Chronic kidney disease, unspecified; R79.9 Abnormal finding of blood chemistry, unspecified; N39.0 Urinary tract infection, site not specified
CPT/HCPCS: 36415; 80053; 81003; 83735; 85025; 87086; 87186; 93005; 93010; 99284-25